=== PATIENT | female | born 1950 | race Caucasian/White ===

== ENCOUNTER 2020-05-17 00:12 | Outpatient (CLI) | payer MEDICARE, SELFPAY ==
[2020-05-17 18:54] LABS: SARS-CoV-2 RNA PCR Negative
== END 2020-05-17 00:13 | disposition home or self-care (01) ==
LOC: ANHCOVIDDT 00:12
PROVIDERS: PCP Family Medicine; Visit Provider Internal Medicine Gastroenterology
DX: Z20.828 Contact with and (suspected) exposure to other viral communicable diseases (principal)
CPT/HCPCS: 87635; C9803; U0003

== ENCOUNTER 2020-05-19 02:02 | Day surgery (SDC) | payer MEDICARE, SELFPAY ==
[2020-05-12 13:35] VITALS: BMI 32.0
[2020-05-19 06:41] VITALS: BP 156/75; PULSE 87; RESP 18; TEMP 36.1; O2SAT 97; BMI 36.9
[2020-05-19] MEDS: LACTATED RINGERS 1,000 ML 150 ML IV CONT (06:50)
--- NOTE | 2020-05-19 08:02 | WPDGICN ---
Assessment and Plan Assessment and plan (1) Family history of colon cancer in mother: Code(s): Z80.0 - Family history of malignant neoplasm of digestive organs Status: Acute Assessment and Plan: Patient's mother has a history of colon cancer. For this reason patient presents for screening colonoscopy. Patient does report having had a polyp of per own in the distant past that was resected and removed. Plan is for surveillance colonoscopy today. In would be recommended at 5 year intervals in the future. GI Consult Note Consult date/time: 05/19/20 08:02 HPI: Saniya Mancera is a 69 year old female seen in evaluation at the request of DR Ramirez. Patient presents for surveillance colonoscopy. She states that her current weight appetite bowel movements are normal. Family history is significant that her mother had colon cancer. Patient denies abdominal pain. She states her bowel habits are normal. She denies blood in her stools. Her bowel Habits are reported to be regular. Patient does have a history of colon polyps in the past. Review of Systems Review of Systems: All systems reviewed & are unremarkable except as noted in HPI and below PMFSH Past Medical History Medical History Breast cancer screening Chronic low back pain with right-sided sciatica Chronic low back pain without sciatica Chronic pain of right knee Chronic right hip pain DISH (diffuse idiopathic skeletal hyperostosis) Diverticulosis Essential (primary) hypertension Non-Hodgkin lymphoma in remission Osteopenia after menopause Polyp of colon Seizure disorder Family History Family History Father Family history of cardiovascular disease, Onset Age: 71 Mother Family history of malignant neoplasm, Onset Age: 74 Grandparent Family history of malignant neoplasm, Onset Age: 60 Social History Social History Smoking status: Never smoker Alcohol intake: never Meds Home Medications and Allergies Home Medications Medication Instructions Recorded Confirmed Type folic acid 1 mg tablet 1 mg PO DAILY 09/25/19 05/12/20 History lamotrigine 200 mg tablet 200 mg PO .COMPLEX tablet 10/07/19 05/12/20 History meloxicam 15 mg tablet 15 mg PO DAILY PRN #90 tablet 10/07/19 05/12/20 Rx phenytoin sodium extended 100 mg 100 mg PO QID cap 10/07/19 05/12/20 History capsule olmesartan 20 mg tablet 20 mg PO DAILY #30 tablet 11/24/19 05/12/20 Rx divalproex 250 mg PO 05/12/20 History Allergies Allergy/AdvReac Type Severity Reaction Status Date / Time codeine AdvReac Mild GI UPSET Verified 05/19/20 06:39 Vital Signs Vital Signs - 24 hr 05/19/20 06:41 Temperature 36.1 C L Pulse Rate 87 Respiratory Rate 18 Blood Pressure 156/75 H Pulse Oximetry 97 Exam Narrative: Exam Narrative: Physical exam repeat feels her to be alert. Vital signs stable. HEENT exam unremarkable. Lungs are clear to auscultation and percussion. Heart is without murmur or extra sounds. Abdominal exam bowel sounds are present soft nontender with no organomegaly. Digital external rectal exam normal.
--- NOTE | 2020-05-19 08:06 | WPDANESEPPF ---
Anes - Initial Pre Proc Eval Procedure: Operation Date: 05/19/20 08:00 Proposed Procedures p Screening Colonoscopy - Bayron Zuniga MD Date/Time: 05/19/20 08:06 Surgeon: Bayron Zuniga MD Pre Op Diagnosis: Family HX Of Colon CA Patient Data Age: 69 Gender: F Height: 5 ft 3 in Weight: 94.6 kg Last Vital Signs Temp 97.0 F L 05/19/20 06:41 Pulse 87 05/19/20 06:41 Resp 18 05/19/20 06:41 BP 156/75 H 05/19/20 06:41 Pulse Ox 97 05/19/20 06:41 Allergies Allergy/AdvReac Type Severity Reaction Status Date / Time codeine AdvReac Mild GI UPSET Verified 05/19/20 06:39 Home Medications Medication Instructions Recorded Confirmed Type folic acid 1 mg tablet 1 mg PO DAILY 09/25/19 05/12/20 History lamotrigine 200 mg tablet 200 mg PO .COMPLEX tablet 10/07/19 05/12/20 History meloxicam 15 mg tablet 15 mg PO DAILY PRN #90 tablet 10/07/19 05/12/20 Rx phenytoin sodium extended 100 mg 100 mg PO QID cap 10/07/19 05/12/20 History capsule olmesartan 20 mg tablet 20 mg PO DAILY #30 tablet 11/24/19 05/12/20 Rx divalproex 250 mg PO 05/12/20 History Patient hx anesthesia problems: none Family hx anesthesia problems: none PMFSH Past Medical History Medical History Breast cancer screening Chronic low back pain with right-sided sciatica Chronic low back pain without sciatica Chronic pain of right knee Chronic right hip pain DISH (diffuse idiopathic skeletal hyperostosis) Diverticulosis Essential (primary) hypertension Non-Hodgkin lymphoma in remission Osteopenia after menopause Polyp of colon Seizure disorder Family History Family History Father Family history of cardiovascular disease, Onset Age: 71 Mother Family history of malignant neoplasm, Onset Age: 74 Grandparent Family history of malignant neoplasm, Onset Age: 60 Social History Social History Smoking status: Never smoker Alcohol intake: never Anes - Eval Final PreProcedure Day of Procedure 05/19/20 08:06 Patient weight: overweight Heart: regular rate and rhythm Lungs: clear to auscultation Airway: Mallampati scale class II Neurological: alert and oriented Last oral intake: >/= 8 hours ASA classification: III Emergent: no Anesthetic plan: proceed Anesthesia type and monitoring: general GIVS and standard monitoring Informed Consent: The patient's anesthetic plan and its attendant risks and benefits were discussed with the patient/family/POA. Questions were solicited and answers provided to the satisfaction of the patient/family/POA.
[2020-05-19 08:27] VITALS: BP 130/75; PULSE 74; RESP 16; O2SAT 97
[2020-05-19 08:37] VITALS: BP 125/74; PULSE 69; RESP 16; O2SAT 98
[2020-05-19 08:47] VITALS: BP 152/81; PULSE 73; RESP 17; O2SAT 97
== END 2020-05-19 09:02 | disposition home or self-care (01) ==
PROVIDERS: PCP Family Medicine; Visit Provider Internal Medicine Gastroenterology
PROC: 0DJD8ZZ Inspection of Lower Intestinal Tract, Via Natural or Artificial Opening Endoscopic (ICD-10-PCS; CPT 45378; principal; 2020-05-19 08:00)
DX: Z12.11 Encounter for screening for malignant neoplasm of colon (principal); K64.8 Other hemorrhoids; K57.30 Diverticulosis of large intestine without perforation or abscess without bleeding; Z80.0 Family history of malignant neoplasm of digestive organs; M48.10 Ankylosing hyperostosis [Forestier], site unspecified; I10 Essential (primary) hypertension; Z85.72 Personal history of non-Hodgkin lymphomas; G40.909 Epilepsy, unspecified, not intractable, without status epilepticus
CPT/HCPCS: G0105; J2704; J7120

== ENCOUNTER 2020-06-24 15:22 | Outpatient (CLI) | payer MEDICARE, SELFPAY ==
--- NOTE | ~2020-06-24 | XR_ITS ---
XR hip RT 2V w AP pelvis DATE: 06/24/2020 15:52 INDICATION: Right hip pain. Right knee pain. TECHNIQUE: AP pelvis. AP and lateral views of right hip COMPARISON: None FINDINGS: No fracture, dislocation, avascular necrosis or bone destruction of the right hip is eviden t. Right hip joint space appears symmetric and relatively well preserved. The pubic symphysis and sacroiliac joints are intact. No pelvic fracture or bone destruction is detec bang. There is degenerative disc disease of the lower lumbar and lumbosacral area. IMPRESSION: Degenerative disc disease of the lower lumbar and lumbosacral area Reviewed, dictated and finalized at location A.
--- NOTE | ~2020-06-24 | XR_ITS ---
XR knee RT min 4V DATE: 06/24/2020 15:52 INDICATION: Right knee pain for 6 months. No known injury. TECHNIQUE: 3 views COMPARISON: None FINDINGS: There is prominent osteoarthritic change at the patellofemoral and lateral compartments. No fracture or dislocation, radiopaque intra-articular loose body or chondrocalcinosis is evident. Moderate osteopenia. IMPRESSION: Prominent osteoarthritis at the lateral and patellofemoral compartments Reviewed, dictated and finalized at location A. IMPRESSION: Prominent osteoarthritis at the lateral and patellofemoral compartm ents
== END 2020-06-24 15:23 | disposition home or self-care (01) ==
LOC: ANHIMG 15:24
PROVIDERS: PCP Family Medicine; Visit Provider Family Medicine
DX: M17.11 Unilateral primary osteoarthritis, right knee (principal); M51.36 Other intervertebral disc degeneration, lumbar region
CPT/HCPCS: 73502; 73564

== ENCOUNTER 2020-09-29 13:55 | Outpatient (CLI) | payer MEDICARE, SELFPAY ==
--- NOTE | 2020-09-29 14:11 | ECG_ITS ---
Measurements Intervals [place] Rate: 76 P: -17 MS: 160 QRS: 28 QRSD: 89 T: 45 QT: 357 QTc: 402 Interpretive Statements SINUS OR ECTOPIC ATRIAL RHYTHM BORDERLINE ECG Electronically Signed On 09-29-2020 17:13:16 BOOK COVERER by Denys Olivas D.O.
== END 2020-09-29 13:56 | disposition home or self-care (01) ==
PROVIDERS: PCP Family Medicine; Visit Provider Family Medicine
DX: I10 Essential (primary) hypertension (principal)
CPT/HCPCS: 93005

== ENCOUNTER 2022-08-16 12:32 | Outpatient (CLI) | payer MEDICARE, SELFPAY ==
--- NOTE | 2022-08-17 13:22 | WPDNEUROLOGY ---
Neurology EEG Report General Information Date of Study: 08/17/22 TEST Routine EEG DIAGNOSIS Epilepsy CONDITION OF RECORDING Awake EEG NUMBER [id number] CLINICAL HISTORY Patient with a history of epilepsy. Last seizure was 2 years ago. Last EEG done 20+ years ago. EEG DESCRIPTION During the awake state with eyes closed the background consists of 9 Hz posterior dominant rhythm which attenuates appropriately with eye opening. The recording is continuous. There is a well developed anterior-posterior gradient. No significant asymmetries of background activities are noted. Patient did not sleep during the recording. There are no epileptiform discharges or seizures during this recording. Photic stimulation and hyperventilation were done, neither of which elicited an abnormal response. IMPRESSION This is a normal routine EEG recorded in the awake state. There are no electrographic seizures identified, nor are there any epileptiform discharges. Please note that a normal EEG cannot exclude a seizure disorder. Clinical correlation is recommended.
== END 2022-08-16 12:33 | disposition home or self-care (01) ==
LOC: ANHNEURO 12:34
PROVIDERS: PCP Family Medicine; Visit Provider Psychiatry & Neurology Neurology
DX: R56.9 Unspecified convulsions (principal)
CPT/HCPCS: 95816

== ENCOUNTER → 2022-11-23 13:51 | Outpatient (CLI) | payer MEDICARE, SELFPAY ==
--- NOTE | ~2022-11-23 | MM_ITS ---
EXAMINATION: MM screening reji BI w jagdeep HISTORY: Screening mammogram TECHNIQUE: Craniocaudal and mediolateral oblique 3-D tomosynthesis images were obtained and synthetic 2-D images were generated. CAD analysis was submitted and interpreted. COMPARISON: 11/06/2019 BREAST PARENCHYMAL COMPOSITION: There are scattered areas of fibroglandular density. FINDINGS: No suspicious mass, calcification, or architectural distortion are identified in either elysia ast to suggest malignancy. There has been no suspicious interval change. IMPRESSION: 1. No mammographic evidence of malignancy. 2. Recommend routine screening mammography in one year. BI-RADS Category 1: Negative Reviewed, dictated and finalized at location A. ORATE CONTROLLER
== END ==
PROVIDERS: PCP Family Medicine; Visit Provider Family Medicine
DX: Z12.31 Encounter for screening mammogram for malignant neoplasm of breast (principal)
CPT/HCPCS: 77063; 77067

== ENCOUNTER 2024-02-05 14:12 | Outpatient (CLI) | payer MEDICARE, SELFPAY ==
[2024-02-05 14:59] LABS: Basophils Percent Auto 0.2 % (0.2-1.2); Eosinophils Absolute Auto 0.2 K/mm3 (0-0.3); Eosinophils Percent Auto 3.1 % (0-4.4); Hematocrit 37.4 % (37.0-47.0); Immature Granulocyte Absolute 0.01 K/mm3 (0.00-0.031); Immature Granulocyte Percent A 0.2 % (0-0.5); Lymphocytes Absolute Auto 1.25 K/mm3 (0.9-3.2); Lymphocytes Percent Auto 25.6 % (18.3-44.2); Mean Corpuscular HGB Conc 32.1 g/dl (32-36); Mean Corpuscular Hemoglobin 28.2 pg (26-34); Mean Platelet Volume 9.9 fl (7.4-10.4); Monocytes Absolute Auto 0.6 K/mm3 (0.1-0.6); Monocytes Percent Auto 11.3 % (2.6-8.5); Neutrophils Absolute Auto 2.9 K/mm3 (1.3-6.7); Neutrophils Percent Auto 59.6 % (45.5-73.1); Platelet Count Result 215 k/mm3 (150-375); Red Blood Count 4.25 M/mm3 (4.2-5.4); Red Cell Distribution Width 12.8 % (11.5-14.5); White Blood Count 4.9 K/mm3 (4.5-10.0)
[2024-02-05 15:35] LABS: Alanine Aminotransferase 14 U/L (6-35); Albumin Level 4.1 g/dL (3.5-5.1); Alkaline Phosphatase 90 U/L (38-126); Anion Gap 6 mmol/L (8-16); Aspartate Amino Transferase 23 U/L (14-36); Bilirubin,Total 0.3 mg/dL (0.2-1.3); Blood Urea Nitrogen 14 mg/dL (7-17); Calcium 9.4 mg/dL (8.4-10.2); Carbon Dioxide 28 mmol/L (22-30); Chloride 98 mmol/L (98-107); Estimated Glomerular Filt Rate > 60; Glucose 100 mg/dL (65-110); Potassium 4.1 mmol/L (3.4-5.0); Sodium 132 mmol/L (137-145)
[2024-02-05 15:43] LABS: Valproic Acid 34.2 ug/mL (50-120)
== END 2024-02-05 14:13 | disposition home or self-care (01) ==
LOC: ANHLAB 14:15
PROVIDERS: PCP Family Medicine; Visit Provider Student in an Organized Health Care Education/Training Program
DX: G40.909 Epilepsy, unspecified, not intractable, without status epilepticus (principal)
CPT/HCPCS: 36415; 80053; 80164; 85025

== ENCOUNTER 2024-04-10 13:41 | Emergency (ER) | payer MEDICARE, SELFPAY ==
--- NOTE | 2024-04-10 13:43 | ED.URI ---
HPI - URI/Sore Throat General Chief Complaint: Upper Respiratory Infection Stated Complaint: Cough and Shortness of Breath Time Seen by Provider: 04/10/24 13:43 Source: patient Mode of arrival: ambulatory Limitations: no limitations History of Present Illness HPI Narrative: Patient is is 73-year-old female who presents with 9 days of dry cough and congestion. Patient states her primary can never get her in. Denies any fever, chills, nausea, vomiting, diarrhea. No history of asthma, COPD or pneumonia. Patient was given Keflex for 5 days on the along with Tessalon Perles. States has some problem not helping. Has taken Robitussin with moderate relief. Related Data Home Medications Medication Instructions Recorded Confirmed cyanocobalamin (vitamin B-12) 1,000 mcg PO DAILY 09/03/23 04/10/24 1,000 mcg tablet Allergies Allergy/AdvReac Type Severity Reaction Status Date / Time codeine AdvReac Mild GI UPSET Verified 01/11/24 15:42 nitrofurantoin AdvReac Intermediate Nausea Uncoded 04/07/24 13:21 Review of Systems Review of Systems: All systems reviewed & are unremarkable except as noted in HPI and below Constitutional: Constitutional: Denies body ache(s), Denies chills, Denies fatigue, Denies fever(s), Denies headache(s), Denies malaise and Denies weakness Eyes: Eyes: Denies blurry vision, Denies itchy eyes and Denies loss of vision ENT: Denies otalgia, Denies headache(s), Reports nasal congestion, Denies sinus pain and Denies sore throat Cardiovascular: Cardiovascular: Denies chest pain, Denies irregular heart rhythm and Denies dyspnea Respiratory: Respiratory: Reports cough and Denies dyspnea Gastrointestinal: Gastrointestinal: Denies abdominal pain, Denies diarrhea, Denies nausea and Denies vomiting Musculoskeletal: Musculoskeletal: Denies back pain, Denies myalgias and Denies arthralgias Integumentary/Breasts: Skin/Breast: Denies pruritus and Denies rash Neurologic: Denies headache(s), Denies loss of vision and Denies weakness Psychiatric: Psychiatric: Reports no additional psychiatric complaints Endocrine: Endocrine: Denies fatigue Allergic/Immunologic: Allergic/Immunologic: Denies itchy eyes PMFSH Past Medical History Medical History Anemia Hemoglobin 11.6, iron 115 with 54% saturation and ferritin 102 with vitamin B12 370 and folic acid 24 on 08/31/2023. At low risk for fall Basal cell carcinoma with sebaceous differentiation pathology done on biopsy 02/21/2023. Bilateral chronic knee pain BMI 34.0-34.9,adult BMI 35.0-35.9,adult BMI 36.0-36.9,adult BMI 37.0-37.9, adult Breast cancer screening Normal mammogram 11/23/2022. Chronic low back pain with left-sided sciatica Chronic low back pain with right-sided sciatica Chronic low back pain without sciatica Chronic pain of left knee Chronic pain of right knee total knee replacement Chronic right hip pain Cough DISH (diffuse idiopathic skeletal hyperostosis) Diverticulosis Encounter for hepatitis C screening test for low risk patient (08/31/23) Hepatitis-C screening was negative on 08/31/2023. Essential (primary) hypertension Fever blister Folic acid deficiency level normal at 24 with hemoglobin 11.6 on 08/31/2023. Furuncle of axilla Neoplasm of nose (~2021) erythematous papule right nostril 0.2 cm shave 02/21/2023 Neoplasm of skin (~2020) nonhealing crusted lesion left forehead for 1 year Non-Hodgkin lymphoma in remission treated 2006 at [facility], remission. Obesity (BMI 30-39.9) Osteopenia after menopause Polyp of colon history of colon polyp with last exam normal on 05/19/2020 with recheck in 5 years. Preoperative clearance Seizure disorder EEG on 08/17/2022 was normal. UTI (urinary tract infection) Vitamin B12 deficiency (08/31/23) level low at 370 with goal greater than 400 with hemoglobin 11.6 and folic acid 24 on 08/31/2023. Family History Family History (
[2024-04-10 13:50] VITALS: BP 149/71; PULSE 83; RESP 18; TEMP 36.3; O2SAT 99
== END 2024-04-10 14:08 | disposition home or self-care (01) ==
PROVIDERS: Emergency Provider Nurse Practitioner Family; PCP Family Medicine
DX: J20.9 Acute bronchitis, unspecified (principal); D64.9 Anemia, unspecified; I10 Essential (primary) hypertension; Z96.651 Presence of right artificial knee joint; E66.9 Obesity, unspecified; Z68.30 Body mass index [BMI] 30.0-30.9, adult; M85.80 Other specified disorders of bone density and structure, unspecified site; E53.8 Deficiency of other specified B group vitamins; Z85.828 Personal history of other malignant neoplasm of skin; Z85.72 Personal history of non-Hodgkin lymphomas
CPT/HCPCS: 99213; G0463

== ENCOUNTER → 2024-04-17 12:20 | Outpatient (CLI) | payer MEDICARE, SELFPAY ==
--- NOTE | ~2024-04-17 | XR_ITS ---
EXAMINATION: XR chest 2V DATE: 04/17/2024 12:28 INDICATION: Acute bronchitis, unspecified. TECHNIQUE: Frontal and lateral views of the chest were obtained. COMPARISON: Chest 2 views 02/09/2018 FINDINGS: There is no pneumonia, pleural effusion, or pneumothorax. Cardiomegaly is noted. IMPRESSION: 1. Cardiomegaly. Reviewed, dictated and finalized at location A. IMPRESSION: 1. Cardiomegaly.
== END ==
LOC: EXPTROY 12:21
PROVIDERS: PCP Family Medicine; Visit Provider Family Medicine
DX: J20.9 Acute bronchitis, unspecified (principal); I51.7 Cardiomegaly
CPT/HCPCS: 71046

== ENCOUNTER 2024-05-19 09:52 | Outpatient (CLI) | payer MEDICARE, SELFPAY ==
--- NOTE | 2024-05-19 10:42 | ECG_ITS ---
Test Date: 2024-05-19 11:06:01 Measurements Intervals [place] Rate: 76 P: 41 NH: 180 QRS: 12 QRSD: 83 T: 43 QT: 347 QTc: 391 Interpretive Statements SINUS RHYTHM VOLTAGE CRITERIA FOR LVH BORDERLINE R WAVE PROGRESSION, ANTERIOR LEADS CONSIDER INFERIOR INFARCT, AGE INDETERMINATE ABNORMAL ECG No previous ECG available for comparison Electronically Signed On 05-19-2024 11:37:18 CDT by Denys Olivas D.O.
[2024-05-19 11:18] LABS: Basophils Percent Auto 0.2 % (0.2-1.2); Eosinophils Absolute Auto 0.1 K/mm3 (0-0.3); Eosinophils Percent Auto 2.2 % (0-4.4); Hematocrit 30.8 % (37.0-47.0); Hemoglobin 9.9 g/dL (12.0-15.0); Immature Granulocyte Absolute 0.08 K/mm3 (0.00-0.031); Immature Granulocyte Percent A 1.4 % (0-0.5); Lymphocytes Absolute Auto 1.24 K/mm3 (0.9-3.2); Lymphocytes Percent Auto 21.1 % (18.3-44.2); Mean Corpuscular HGB Conc 32.1 g/dl (32-36); Mean Corpuscular Hemoglobin 28.4 pg (26-34); Mean Corpuscular Volume 88.3 fl (80-100); Mean Platelet Volume 9.4 fl (7.4-10.4); Monocytes Percent Auto 16.1 % (2.6-8.5); Neutrophils Absolute Auto 3.5 K/mm3 (1.3-6.7); Platelet Count Result 264 k/mm3 (150-375); Red Blood Count 3.49 M/mm3 (4.2-5.4); Red Cell Distribution Width 13.6 % (11.5-14.5); White Blood Count 5.9 K/mm3 (4.5-10.0)
[2024-05-19 11:30] LABS: Albumin Level 3.8 g/dL (3.5-5.1); Anion Gap 8 mmol/L (4-12); Blood Urea Nitrogen 8 mg/dL (7-17); Calcium 9.1 mg/dL (8.4-10.2); Carbon Dioxide 29 mmol/L (22-30); Chloride 96 mmol/L (98-107); Estimated Glomerular Filt Rate > 60; Glucose 107 mg/dL (65-110); Potassium 3.8 mmol/L (3.4-5.0); Sodium 133 mmol/L (137-145)
[2024-05-19 11:33] LABS: Phenytoin Dilantin 5 ug/mL (10-20)
[2024-05-19 11:49] LABS: Urine Cotinine NEGATIVE
[2024-05-19 11:51] LABS: Valproic Acid 30.7 ug/mL (50-120)
[2024-05-19 12:02] LABS: Hemoglobin A1C 5.2 % (<5.7)
== END 2024-05-19 09:53 | disposition home or self-care (01) ==
LOC: ANHSURGERY 09:54
PROVIDERS: Anesthesiology; PCP Family Medicine; Visit Provider Orthopaedic Surgery
DX: Z01.818 Encounter for other preprocedural examination (principal); M17.12 Unilateral primary osteoarthritis, left knee; G40.909 Epilepsy, unspecified, not intractable, without status epilepticus; R94.31 Abnormal electrocardiogram [ECG] [EKG]
CPT/HCPCS: 36415; 80048; 80164; 80185; 80307; 82040; 83036; 85025; 87081; 93005

== ENCOUNTER 2024-05-26 10:25 | Outpatient (CLI) | payer MEDICARE, SELFPAY ==
[2024-05-26 10:47] LABS: Basophils Percent Auto 0.5 % (0.2-1.2); Eosinophils Absolute Auto 0.1 K/mm3 (0-0.3); Eosinophils Percent Auto 3.2 % (0-4.4); Hematocrit 33.5 % (37.0-47.0); Hemoglobin 10.8 g/dL (12.0-15.0); Immature Granulocyte Absolute 0.04 K/mm3 (0.00-0.031); Immature Granulocyte Percent A 0.9 % (0-0.5); Lymphocytes Absolute Auto 1.78 K/mm3 (0.9-3.2); Mean Corpuscular HGB Conc 32.2 g/dl (32-36); Mean Corpuscular Hemoglobin 28.6 pg (26-34); Mean Corpuscular Volume 88.6 fl (80-100); Mean Platelet Volume 8.7 fl (7.4-10.4); Monocytes Absolute Auto 0.5 K/mm3 (0.1-0.6); Monocytes Percent Auto 11.8 % (2.6-8.5); Neutrophils Absolute Auto 1.9 K/mm3 (1.3-6.7); Neutrophils Percent Auto 42.6 % (45.5-73.1); Platelet Count Result 300 k/mm3 (150-375); Red Blood Count 3.78 M/mm3 (4.2-5.4); Red Cell Distribution Width 13.7 % (11.5-14.5); White Blood Count 4.3 K/mm3 (4.5-10.0)
== END 2024-05-26 10:26 | disposition home or self-care (01) ==
PROVIDERS: PCP Family Medicine; Visit Provider Orthopaedic Surgery
DX: D64.9 Anemia, unspecified (principal)
CPT/HCPCS: 36415; 85025

== ENCOUNTER 2024-06-05 01:24 | Day surgery (SDC) | payer MEDICARE, SELFPAY ==
[2024-05-19 09:59] VITALS: BMI 34.9
--- NOTE | 2024-05-19 10:22 | PC.NURSE ---
Report to the Outpatient Waiting Room, entrance under the green pavilion located off [facility], at time __6:00 AM on date __06/05/24 . Planned Procedure Time: _7:30 AM . Time changes happen often and if your time is changed the preop area will call you the afternoon before. - You and your visitor will be asked to self-screen and do not enter if you have any COVID symptoms. - A mask is optional within the hospital at this time. Patients may have clear liquids (water, carbonated beverages, clear teas, apple juice) until 3 hours prior to surgery( 4:30 AM) with a maximum of 20 ounces. - No food from midnight until time of surgery - Infants may have breast milk until 4 hours before surgery, infant formula 6 hours prior to surgery. - Children will be allowed to drink immediately following surgery. If applicable, please bring a bottle or sippy cup to assist with drinking. Juice, water, soda, and popsicles are readily available. For infants on formula, please bring formula the day of surgery. Pacifiers are allowed. Take the following medications with a SIP of water the morning of surgery: ___DIVALPROEX,LAMOTRIGINE,PHENYTOIN DO NOT STOP ANY OF YOUR OTHER PRESCRIPTION MEDICATIONS PRIOR TO SURGERY ?EXCEPT THE FOLLOWING Medications to discontinue per physician __HOLD MELOXICAM 7 DAYS PRE OP PER DR PAIZ.LAST DOSE05/28/24.MAY TAKE TYLENOL IF NEEDED FOR PAIN.HOLD ALL VITAMINS AND SUPPLEMENTS 3 DAYS PRE OP.LAST DOSE 06/01/24 TOTAL JOINT CLASS 05/21/24 AT 10 AM Please no make-up, nail croatian, hairspray, perfume, deodorant, or body powder the day of surgery. No jewelry (including any body piercings) or valuables the day of surgery, leave them at home. Please take a shower or bath the night before, or the morning of, surgery with an antibacterial soap. Wear comfortable, loose fitting clothing. Children are encouraged to wear pajamas. - Jewelry must be removed prior to entering the operating room. Rings and piercings that are not removed may be cut off. - The hospital will not accept responsibility for valuables. - Please leave all valuables, including medications, at home the day of surgery. If you are going home after surgery, a licensed intermodal owner operator truck driver must drive you home. - NO public transportation without another adult if you receive anesthesia. - We recommend that an adult stay with you for 24 hours following discharge. - We also recommend that you do not drive, make important decision, drink alcoholic beverages, or take any drugs that were not prescribed by your health care provider for at least 24 hours after your discharge sherry Follow any additional instructions given to you from your surgeon. If you or anyone in your household have experienced Covid symptoms in the past week, please notify your surgeon or the nurse liaison at the phone number below for possible testing. VERBAL AND WRITTEN instructions given to _PATIENT AND SPOUSE AARON and asked if any additional questions and then verbalized understanding. Patient advised to call surgeon office or pre surgery nurse liaison [phone] if any additional questions.
[2024-05-19 10:48] VITALS: BP 165/76; PULSE 85; RESP 18; TEMP 36.9; O2SAT 97
--- NOTE | 2024-06-02 09:17 | PM.IMHP ---
H&P: HPI History of Present Illness Date/Time: 06/02/24 09:17 Chief Complaint: Left knee DJD Narrative: 73-year-old female who presents today for a left total knee arthroplasty. She has been having pain in her knee for several years. She has been treated this nonsurgically with anti-inflammatories as well as cortisone injections. Last injection was in 2021. Offered her minimal amount of improvement so she stopped getting these. She has been taking meloxicam 15 mg daily. Patient has severe lateral compartment osteoarthritis in at this point she feels she is ready proceed with total knee arthroplasty. She had her right knee replaced in 2020 is happy with the results. She had uneventful recovery. She is a patient of Dr. Ramirez Review of Systems Review of Systems: All systems reviewed & are unremarkable except as noted in HPI and below PMFSH Past Medical History Medical History (Updated 05/21/24 @ 10:37 by Michel Ramirez MD) Acute bronchitis Chest x-ray revealed no active lung disease. Cardiomegaly noted 04/17/2024. Acute non-recurrent maxillary sinusitis Anemia Hemoglobin 11.6, iron 115 with 54% saturation and ferritin 102 with vitamin B12 370 and folic acid 24 on 08/31/2023. Hemoglobin 9.9 on 05/19/2024. At low risk for fall Basal cell carcinoma with sebaceous differentiation pathology done on biopsy 02/21/2023. Bilateral chronic knee pain BMI 33.0-33.9,adult BMI 34.0-34.9,adult BMI 35.0-35.9,adult BMI 36.0-36.9,adult BMI 37.0-37.9, adult Breast cancer screening Normal mammogram 11/23/2022. Chronic low back pain with left-sided sciatica Chronic low back pain with right-sided sciatica Chronic low back pain without sciatica Chronic pain of left knee Chronic pain of right knee total knee replacement Chronic right hip pain Cough DISH (diffuse idiopathic skeletal hyperostosis) Diverticulosis Encounter for hepatitis C screening test for low risk patient (08/31/23) Hepatitis-C screening was negative on 08/31/2023. Essential (primary) hypertension Fever blister Folic acid deficiency level normal at 24 with hemoglobin 11.6 on 08/31/2023. Furuncle of axilla Gastritis Neoplasm of nose (~2021) erythematous papule right nostril 0.2 cm shave 02/21/2023 Neoplasm of skin (~2020) nonhealing crusted lesion left forehead for 1 year Non-Hodgkin lymphoma in remission treated 2006 at [facility], remission. Obesity (BMI 30-39.9) Osteopenia after menopause Polyp of colon history of colon polyp with last exam normal on 05/19/2020 with recheck in 5 years. Preoperative clearance Seizure disorder EEG on 08/17/2022 was normal. UTI (urinary tract infection) Vitamin B12 deficiency (08/31/23) level low at 370 with goal greater than 400 with hemoglobin 11.6 and folic acid 24 on 08/31/2023. Surgical History Surgical History (Updated 05/14/24 @ 14:38 by Marta Faustin [facility]) History of hand surgery History of hysterectomy History of right knee joint replacement Family History Family History Father Family history of cardiovascular disease, Onset Age: 71 Mother Family history of malignant neoplasm, Onset Age: 74 Grandparent Family history of malignant neoplasm, Onset Age: 60 Social History Social History Smoking status: Never smoker Additional smoking assessment comments: DENIES ANY FORM OF TOBACCO USE Alcohol intake: never Substance use: never Substance use type: does not use Do You Feel Safe in your Home?: Yes Lack of Transportation: No Lack of Food: Never True Current Housing: I Have Housing Concerned About Future Housing: No Difficulty Paying Gas/Electric Bills: No Difficulty Paying for Meds: No Currently Unemployed: No Education: High School Diploma/GED Difficulty w/ Childcare or Family Care: No Living arrangements: jillian
[2024-06-05] VITALS (14 sets, daily range): BP systolic 81–163; BP diastolic 40–79; PULSE 86–104; RESP 12–20; TEMP 36.2–36.5; O2SAT 94–99
--- NOTE | ~2024-06-05 | XR_ITS ---
EXAMINATION: [id number] DATE: 06/05/2024 11:27 INDICATION: Postoperative evaluation following left total knee arthroplasty. TECHNIQUE: Anteroposterior and lateral views of the left knee were obtained. COMPARISON: None. FINDINGS: Left total knee arthroplasty without patellar resurfacing appears well seated and in near anatomic al ignment. No fractures identified. Expected postoperative subcutaneous and intra-articular gas. IMPRESSION: 1. Left total knee arthroplasty, negative for postoperative purposes. Reviewed, dictated and finalized at location A.
[2024-06-05] MEDS: TRANEXAMIC ACID 1,000MG/ISO100 1,000 MG/100 ML BAG 200 MG IVPB (06:45)
[2024-06-05] MEDS: VANCOMYCIN 1,250 MG/NS 250 ML BAG 166.67 MG IVPB (06:45)
[2024-06-05] MEDS: LACTATED RINGERS 1,000 ML 30 ML IV CONT ×3 (06:45→11:40)
[2024-06-05] MEDS: ACETAMINOPHEN 500 MG TABLET 1000 MG PO (06:45)
[2024-06-05 07:16] LABS: Hematocrit 36.3 % (37.0-47.0); Hemoglobin 11.6 g/dL (12.0-15.0)
--- NOTE | 2024-06-05 07:21 | WPDANESEPPF ---
Anes - Initial Pre Proc Eval Procedure: Operation Date: 06/05/24 07:30 Proposed Procedures p Left Total Knee Arthroplasty - Guille Ricks MD Date/Time: 06/05/24 07:21 Surgeon: Guille Ricks MD Pre Op Diagnosis: oa left knee Patient Data Age: 73 Gender: F Height: 1.57 m Weight: 84.1 kg Last Vital Signs Temp 97.1 F L 06/05/24 06:45 Pulse 96 06/05/24 06:45 Resp 14 06/05/24 06:45 BP 126/57 L 06/05/24 06:45 Pulse Ox 98 06/05/24 06:45 O2 Del Method Room Air 06/05/24 06:45 Allergies Allergy/AdvReac Type Severity Reaction Status Date / Time No Known Allergies Allergy Verified 06/05/24 07:17 Home Medications Medication Instructions Recorded Confirmed Type folic acid 1 mg tablet 1 mg PO DAILY #90 tabs 01/11/24 06/04/24 Rx olmesartan 40 mg tablet 40 mg PO DAILY #30 tabs 01/28/24 06/04/24 Rx divalproex 250 mg tablet,delayed 250 mg PO BID #180 tabs 01/31/24 06/04/24 Rx release phenytoin sodium extended 100 mg 200 mg PO BID #360 caps 01/31/24 06/04/24 Rx capsule calcium polycarbophil 625 mg 1,250 mg PO DAILY 05/19/24 06/04/24 History tablet (FiberCon) vit C 250 mg-vit E 200 unit-zinc 2 cap PO HS 05/19/24 06/04/24 History ox 12.5 bw-hqxiap-krtdfo-zeax capsule (ICaps AREDS2) rabeprazole 20 mg tablet,delayed 20 mg PO DAILY #30 tabs 05/21/24 06/04/24 Rx release (AcipHex) lamotrigine 200 mg tablet 400 mg PO BID 06/04/24 06/05/24 History Laboratory Tests 06/05/24 06:39 Hgb 11.6 L g/dL (12.0-15.0) Hct 36.3 L % (37.0-47.0) Blood Type Pending Antibody Screen Pending Patient hx anesthesia problems: none Family hx anesthesia problems: none Results Review: All pre-operative results and documents have been reviewed as part of the pre-operative evaluation. COUNT INCLUDES THE [facility] Past Medical History Medical History (Updated 06/04/24 @ 12:00 by Michel Ramirez MD) Acute bronchitis Chest x-ray revealed no active lung disease. Cardiomegaly noted 04/17/2024. Acute non-recurrent maxillary sinusitis Anemia Hemoglobin 11.6, iron 115 with 54% saturation and ferritin 102 with vitamin B12 370 and folic acid 24 on 08/31/2023. Hemoglobin 9.9 on 05/19/2024. At low risk for fall Basal cell carcinoma with sebaceous differentiation pathology done on biopsy 02/21/2023. Bilateral chronic knee pain BMI 31.0-31.9,adult BMI 33.0-33.9,adult BMI 34.0-34.9,adult BMI 35.0-35.9,adult BMI 36.0-36.9,adult BMI 37.0-37.9, adult Breast cancer screening Normal mammogram 11/23/2022. Chronic low back pain with left-sided sciatica Chronic low back pain with right-sided sciatica Chronic low back pain without sciatica Chronic pain of left knee Chronic pain of right knee total knee replacement Chronic right hip pain Cough DISH (diffuse idiopathic skeletal hyperostosis) Diverticulosis Encounter for hepatitis C screening test for low risk patient (08/31/23) Hepatitis-C screening was negative on 08/31/2023. Essential (primary) hypertension Fever blister Folic acid deficiency level normal at 24 with hemoglobin 11.6 on 08/31/2023. Furuncle of axilla Gastritis Neoplasm of nose (~2021) erythematous papule right nostril 0.2 cm shave 02/21/2023 Neoplasm of skin (~2020) nonhealing crusted lesion left forehead for 1 year Non-Hodgkin lymphoma in remission treated 2006 at [facility], [facility]. Obesity (BMI 30-39.9) Osteopenia after menopause Polyp of colon history of colon polyp with last exam normal on 05/19/2020 with recheck in 5 years. Preoperative clearance Seizure disorder EEG on 08/17/2022 was normal. UTI (urinary tract infection) Vitamin B12 deficiency (08/31/23) level low at 370 with goal greater than 400 with hemoglobin 11.6 and folic acid 24 on 08/31/2023. Surgical History Surgical History (Updated 05/14/24 @ 14:38 by Marta Faustin, [facility]) History of hand surgery History of hysterectomy History of right knee joint replacement Family
--- NOTE | 2024-06-05 07:23 | WPDHPUPDATE1 ---
History and Physical Update Update Date/Time: 06/05/24 07:23 History and Physical has been reviewed, including an updated exam of the patient. There are NO changes in the patient's condition. Risks, benefits, and alternatives have been discussed and questions answered. Patient agrees to proceed with procedure.
[2024-06-05] MEDS: ceFAZolin 2 GM/D5W 50 ML 2 GM/50 ML BAG IVPB ×4 (07:30→22:43)
[2024-06-05] MEDS: SODIUM CHLORIDE 0.9% IV 37.7 ML, MORPHINE SULFATE INJ (*CRX) 2 MG, ROPivacaine HCL 1% 2... INFILTRATE (08:05)
[2024-06-05] MEDS: ceFAZolin SODIUM 1 GM VIAL 3 GM (08:06)
[2024-06-05] MEDS: KETOROLAC 15 MG/ML VIAL (*BKC) IV PUSH ×3 (10:21→22:43)
[2024-06-05] MEDS: TRANEXAMIC ACID 1,000 MG/10 ML AMPUL 1000 MG IV PUSH (10:21)
--- NOTE | 2024-06-05 11:31 | W.PM.PROC2 ---
Procedure Note - Detailed Date of Procedure 06/05/24 Pre-op Diagnosis oa left knee Post-op Diagnosis Same Procedure Performed Left total knee arthroplasty Surgeon Guille Ricks MD [employer] [facility] Anesthesia General Description of Procedure Patient was brought to the operating room and general anesthesia was administered and the left leg prepped draped usual fashion. Under anesthesia the knee appeared to come out straight. The valgus deformity did partially correct with varus stress also. The left knee was prepped draped usual fashion. Limb was exsanguinated tourniquet elevated to 300 mmHg. He she received 2 g Ancef weight based vancomycin 1 g of TXA preoperatively. A 7 in longitudinal midline incision was used and a standard parapatellar arthrotomy utilized. Infrapatellar fat pad partially excised the quadriceps synovectomy carried out. The patella had some peripheral osteophytes but the cartilage was normal. Osteophytes were trimmed. A minimal lateral facetectomy was performed I felt the patella was suitable for non resurfacing. There is no deformity. Next a guide gena was inserted on femoral canal after aspiration of canal contents using the 5 degree valgus cutting bushing 10 mm of bone removed the distal femur referenced off the medial side in this removed about 4 mm off the lateral side which was eburnated. Next the tibial plateau was cut. A conservative cut was made that did cut through the lowestwear point of the lateral tibial plateau that this did not get through the articular cartilage posterior aspect of the medial tibial plateau. Therefore an additional 2 mm of bone was removed which just skimmed off the subchondral bone of the posterior aspect of the medial tibial plateau. Cut was made perpendicular to the axis of the tibia. Meniscus remnants were excised the PCL recessed. Flexion gap measured 8 mm medially and 14 mm laterally. The femoral sizing guide was applied the femur set at 7? of external rotation which matched Whitesides line exactly. Posterior referencing pinholes were placed and the size 65 cutting block applied AP and chamfer cuts were made in this gave a line to line cut medial to lateral and rested on the anterior cortex. The knee did not come out to full extension. At 90? of flexion with a 10 CR trial there was about 2 mm of opening with a Lam elevator both medially laterally. The tibia was sized to a 71 which fit line to line all the way around at the proper rotation. This was punched. Trialing with the 10 insert at this time we had appropriate stability to anterior posterior drawer at 90? with 1 mm of medial lateral opening with valgus and varus stress at 90?. However the knee did not come to full extension. Additional 2 mm of bone removed the distal femur at this time. Chamfer cuts revisited. Residual posterior femoral bone proximal to posterior condylar portion of the trial was removed and a conservative central posterior capsular release performed. On trialing at this time the knee had 2 mm of medial opening but no lateral opening. Is still lacked about 10? of extension. The iliotibial band was released about 1/2 cm proximal to the joint line and the posterolateral capsule released closer to the joint line taking care to protect the underlying lateral collateral ligament and this was released up to the popliteal tendon. With this done we read trialed and we had play medially and laterally still lacked few degrees of extension. The posterior capsular release was revisited and completed from the medial head of the gastrocnemius to the lateral head of the gastrocnemius with this done we just had a barely positive bounce with about 1 mm each of medial and lateral opening. Therefore an additional 1 mm bone was removed from the distal femur chamfer cuts revisited and on read trialing the knee came out to full extension with negative bounce 1-2 mm of medial opening extension 1 mm of lateral opening in extension. Th
--- NOTE | 2024-06-05 11:32 | PM.OP ---
Procedure Note - Brief Procedure Note - Brief Date of procedure: 06/05/24 oa left knee Procedure performed: Left total knee arthroplasty Surgeon: ANIA Frazier Findings: 73-year-old female who underwent left total knee arthroplasty on 06/05. I was involved in the procedure including positioning the patient on the OR table in 1st assisting to the time surgery as well as wound closure. Total time spent was 31/2 hours
--- NOTE | 2024-06-05 11:36 | SUR.PHASEI ---
BP on arrival to PACU 81/40. Treated by AIRCREWMAN. BP carmen to 102/60.
[2024-06-05] MEDS: fentaNYL CITRATE INJ (*CRX) 100 MCG/2 ML VIAL 25 MCG IV PUSH ×4 (11:42→11:56)
--- NOTE | 2024-06-05 13:06 | SUR.PHASEI ---
This RN tried to call report to floor RN and she is busy and will call back.
--- NOTE | 2024-06-05 15:32 | ADMGEN ---
This patient, Saniya Mancera, was admitted to [facility] Surg Room 323-01. Patient/family oriented to hospital policies and general routines including ID bracelet, bed and alarms, visiting hours, pain management, procedures, bathroom and other care routines, personal items, smoking policy, room service/diet, and visiting hours. Information on how to activate the Rapid Response Team has been discussed. Patient/Family are encouraged to report perceived risks to care and to ask questions if they do not understand what they are told or what they should do.
[2024-06-05] MEDS: SODIUM CHLORIDE 0.9% IV 1,000 ML 125 ML IV CONT (15:47)
[2024-06-05] MEDS: ACETAMINOPHEN 325 MG TABLET 650 MG PO ×2 (15:48→22:42)
[2024-06-05] MEDS: SENNA/DOCUSATE SODIUM TABLET 2 TAB PO (15:50)
[2024-06-05] MEDS: DIVALPROEX SODIUM DR 250 MG TABEC PO (15:50)
[2024-06-05] MEDS: VANCOMYCIN 1,000 MG/NS 250 ML 1,000 MG/250 ML BAG 250 MG IVPB (17:19)
--- NOTE | 2024-06-05 19:42 | PM.IMCN ---
Assessment and Plan Assessment and plan (1) Osteoarthritis of left knee: Qualifiers: Osteoarthritis type: primary Qualified Code(s): M17.12 - Unilateral primary osteoarthritis, left knee Code(s): M17.12 - Unilateral primary osteoarthritis, left knee Status: Acute Assessment and Plan: Underwent a total left knee arthroplasty on 06/04. - ambulate with assistance and up to chair - apply gel pads - use IS - neurovasc checks - see order for intervals - SCDs and start Eliquis tomorrow on 06/06 - resume diet - pain management and antiemetics p.r.n. - monitor labs in AM - CBC and BMP - bowel regimen: docusate/senna, polyethylene glycol - maintenance fluids: NS 125 mL/hr x8 hours - prophylactic abx - Ancef - PT/OT (2) Anemia: Qualifiers: Anemia type: unspecified type Qualified Code(s): D64.9 - Anemia, unspecified Code(s): D64.9 - Anemia, unspecified Status: Acute Assessment and Plan: - Hgb 10.8 (05/26) -> 11.6 (06/05) - monitor (3) Essential (primary) hypertension: Code(s): I10 - Essential (primary) hypertension Status: Acute Assessment and Plan: - chronic, currently 133/69 - continue home medications: olmesartan 40 mg daily - monitor (4) Seizure disorder: Code(s): G40.909 - Epilepsy, unspecified, not intractable, without status epilepticus Status: Acute Assessment and Plan: - absent type - last seizure 5 years ago when medication was down titrated to see if she could come off - continue divalproex, Lamictal, and phenytoin Plan Patient underwent a left total knee arthroplasty on 06/05. No issues postoperatively. Pain well managed. Anticipate discharge tomorrow on 06/06. Diet: regular GI Prophylaxis: not currently indicated DVT Prophylaxis: SCDs, starting Eliquis tomorrow on 06/06 Lines: peripheral Code Status: full code HPI Date of Consult Consult date: 06/05/24 Requesting Physician: Guille Ricks MD Primary Care Provider: Michel Ramirez MD Consult Narrative Reason for consult: Medical Managment Narrative: Saniya Mancera is a 73 year old female DJD of the left knee with PMH of anemia, basal cell carcinoma, chronic pain, diverticulosis, HTN, folic acid deficiency, gastritis, non-Hodgkin's lymphoma in remission, seizure disorder, and B12 deficiency. The patient presents here for surgical management of her left knee DJD. She reports ongoing pain for the past 10 years. Has failed outpatient conservative measures: oral anti-inflammatories, meloxicam, and cortisone injections. Last cortisone injection was in 2021 and offered full relief for 1 month. Per review of orthopedic note, patient has severe lateral compartment osteoarthritis of the left knee. Has previously underwent a right knee arthroplasty in 2020 and was pleased with the results with an uneventful recovery. Elected to move forward with surgical management and underwent a total left knee arthroplasty on today, 06/05. Postoperatively endorsing no complaints. Denying excessive pain/swelling, nausea or vomiting. Denies any recent changes to her medications. No other complaints. Has hx of absent seizures, last one was 4-5 years ago when they tried to titrate her off her meds due to being seizure free for 10 years. Preop workup: WBC 4.3, hemoglobin 10.8 (today 11.6), sodium 133, creatinine 0.5 and GFR >60, A1C 5.2. Preop VS: 98.5? F, HR 85, RR 18, 165/76, and 97% on RA. Review of Systems Review of Systems: All systems reviewed & are unremarkable except as noted in HPI and below PMFSH Past Medical History Medical History (Updated 06/05/24 @ 20:59 by Tashia Dueñas, [employer]) Acute bronchitis Chest x-ray revealed no active lung disease. Cardiomegaly noted 04/17/2024. Acute non-recurrent maxillary sinusitis Anemia Hemoglobin 11.6, iron 115 with 54% saturation and ferritin 102 with vitamin B12 370 and folic acid 24 on 10
[2024-06-05] MEDS: FAMOTIDINE 20 MG TABLET PO (20:33)
[2024-06-05] MEDS: lamoTRIgine 100 MG TABLET 400 MG PO (20:33)
[2024-06-05] MEDS: PHENYTOIN SODIUM 100 MG EXTENDED RELEASE CAP 200 MG PO (20:34)
[2024-06-06] MEDS: ACETAMINOPHEN 325 MG TABLET 650 MG PO ×3 (00:48→11:15)
[2024-06-06 04:30] VITALS: BP 142/71; PULSE 102; RESP 20; TEMP 37; O2SAT 94
[2024-06-06] MEDS: VANCOMYCIN 1,000 MG/NS 250 ML 1,000 MG/250 ML BAG 250 MG IVPB (05:21)
[2024-06-06 06:26] LABS: Basophils Percent Auto 0.3 % (0.2-1.2); Eosinophils Percent Auto 0.5 % (0-4.4); Hematocrit 26.8 % (37.0-47.0); Hemoglobin 8.5 g/dL (12.0-15.0); Immature Granulocyte Absolute 0.01 K/mm3 (0.00-0.031); Immature Granulocyte Percent A 0.3 % (0-0.5); Lymphocytes Absolute Auto 0.33 K/mm3 (0.9-3.2); Lymphocytes Percent Auto 8.5 % (18.3-44.2); Mean Corpuscular HGB Conc 31.7 g/dl (32-36); Mean Corpuscular Hemoglobin 28.8 pg (26-34); Mean Corpuscular Volume 90.8 fl (80-100); Mean Platelet Volume 10.4 fl (7.4-10.4); Monocytes Absolute Auto 0.3 K/mm3 (0.1-0.6); Monocytes Percent Auto 7.8 % (2.6-8.5); Neutrophils Absolute Auto 3.2 K/mm3 (1.3-6.7); Neutrophils Percent Auto 82.6 % (45.5-73.1); Platelet Count Result 144 k/mm3 (150-375); Red Blood Count 2.95 M/mm3 (4.2-5.4); Red Cell Distribution Width 14.1 % (11.5-14.5); White Blood Count 3.9 K/mm3 (4.5-10.0)
[2024-06-06 06:49] LABS: Anion Gap 8 mmol/L (4-12); Blood Urea Nitrogen 10 mg/dL (7-17); Calcium 8.4 mg/dL (8.4-10.2); Carbon Dioxide 26 mmol/L (22-30); Chloride 99 mmol/L (98-107); Estimated CRCL calculation 70 ml/min; Estimated Glomerular Filt Rate > 60; Glucose 137 mg/dL (65-110); Potassium 3.8 mmol/L (3.4-5.0); Sodium 133 mmol/L (137-145)
[2024-06-06 07:08] VITALS: BP 141/84; PULSE 99; RESP 18; TEMP 36.8; O2SAT 97
--- NOTE | 2024-06-06 07:41 | PM.PNORT ---
Subjective Subjective Date/Time Seen: 06/06/24 07:41 Interval history: Postop day 1 patient is alert. She is having a little bit more pain this morning than she was yesterday. Most of her pain is in the posterior aspect of the knee. I am going to increase her oxycodone 5 mg. She is tolerating the to 2.5 without problems. She will get started on Celebrex this morning which will also help with her symptoms. Morning labs are noted. Hemoglobin was 8.5. Her vital signs are very stable blood pressure is very normal. Patient is having no symptoms from the lower hemoglobin. Dressing is intact. She has very mild swelling in the knee. Neurovascularly she is intact. She was up walking yesterday with physical therapy and patient is anxious to go home. I will have her work with therapy this morning and then she will be discharged home later this morning. Objective Data Vital Signs Vital Signs: Vital Signs - 24 hr 06/05/24 11:22 06/05/24 11:35 06/05/24 11:50 Temperature 97.5 F L Pulse Rate 102 H 100 104 H Respiratory Rate 18 15 14 Blood Pressure 81/40 L 136/71 145/76 H Pulse Oximetry 97 99 99 Oxygen Delivery Simple Face Mask Simple Face Mask Simple Face Mask Oxygen Flow Rate 10 10 10 06/05/24 12:05 06/05/24 12:20 06/05/24 12:35 Temperature Pulse Rate 100 95 96 Respiratory Rate 12 14 12 Blood Pressure 138/72 138/77 135/69 Pulse Oximetry 95 96 95 Oxygen Delivery Nasal Cannula Nasal Cannula Nasal Cannula Oxygen Flow Rate 2 2 2 06/05/24 12:50 06/05/24 13:05 06/05/24 15:15 Temperature Pulse Rate 95 94 Respiratory Rate 12 16 Blood Pressure 130/75 133/69 Pulse Oximetry 95 96 Oxygen Delivery Nasal Cannula Nasal Cannula Room Air Oxygen Flow Rate 2 2 06/05/24 19:50 06/05/24 20:05 06/05/24 20:45 Temperature 97.3 F L 97.5 F L 97.2 F L Pulse Rate 86 92 95 Respiratory Rate 18 20 16 Blood Pressure 149/72 H 145/66 H 163/68 H Pulse Oximetry 95 97 96 Oxygen Delivery Oxygen Flow Rate 06/05/24 20:00 06/05/24 21:50 06/05/24 23:08 Temperature 97.6 F 97.7 F Pulse Rate 98 98 Respiratory Rate 18 20 Blood Pressure 152/71 H 156/79 H Pulse Oximetry 94 95 Oxygen Delivery Room Air Oxygen Flow Rate 06/06/24 04:30 Temperature 98.6 F Pulse Rate 102 H Respiratory Rate 20 Blood Pressure 142/71 H Pulse Oximetry 94 Oxygen Delivery Oxygen Flow Rate Intake/Output Intake/Output: Intake & Output 06/03/24 06/04/24 06/05/24 06/06/24 23:59 23:59 23:59 23:59 Intake Total 1550 280 Balance 1550 280 Meds/Results Medications: Active Medications Generic Name Dose Route Start Last Admin Trade Name Freq PRN Reason Stop Dose Admin Acetaminophen 650 mg 06/05/24 14:00 06/06/24 05:20 Acetaminophen 325 Mg Tablet PO 650 mg Q4H TERESA Administration Apixaban 2.5 mg 06/06/24 09:00 Apixaban 2.5 Mg Tablet PO 06/17/24 21:01 Q12HR TERESA Cefdinir 300 mg 06/06/24 12:00 Cefdinir 300 Mg Capsule PO Q12HR TERESA Celecoxib 100 mg 06/06/24 08:00 Celecoxib 100 Mg Capsule PO DAILY@0800 [facility] Diphenhydramine HCl 25 mg 06/05/24 13:23 Diphenhydramine Hcl Inj 50 Mg/Ml Vial IV PUSH Q6H PRN Itching Divalproex Sodium 250 mg 06/05/24 17:00 06/05/24 15:[address] 250 Mg Tabec PO 250 mg BID TERESA Administration Famotidine 20 mg 06/05/24 21:00 06/05/24 20:33 Famotidine 20 Mg Tablet PO 20 mg Q12HR TERESA Administration Folic Acid 1 mg 06/06/24 09:00 Folic Acid 1 Mg Tablet PO DAILY [facility] Lamotrigine 400 mg 06/05/24 21:00 06/05/24 20:33 Lamotrigine 100 Mg Tablet PO 400 mg Q12HR TERESA Administration Morphine Sulfate 2 mg 06/05/24 13:23 Morphine Sulfate (*Crx) 2 Mg/Ml Inj IV PUSH Q2H PRN Breakthrough Pain Rated 4-6 or NPO Naloxone HCl 0.1 mg 06/05/24 13:23 Naloxone Hcl 0.4 Mg/Ml Vial IV PUSH Q2M PRN Opiate Reversal Olmesartan 40 mg 06/06/24 09:00 Olmesartan Medoxomi
--- NOTE | 2024-06-06 07:53 | PM.DS ---
DS: Admitting Diagnosis Discharge Date 06/06 Admitting Diagnosis Left knee DJD DS: Discharge Diagnosis Discharge Diagnosis (1) Osteoarthritis of left knee: Qualifiers: Osteoarthritis type: primary Qualified Code(s): M17.12 - Unilateral primary osteoarthritis, left knee Code(s): M17.12 - Unilateral primary osteoarthritis, left knee Status: Acute DS: Summary Hospital Course Hospital Course: 73-year-old female who underwent left total knee arthroplasty on 06/05. Underwent the procedure without complications. Postoperatively she has been afebrile vital signs are stable. She was up walking the day of surgery with physical therapy. She is on Eliquis for DVT prophylaxis. Initially she was on oxycodone 2.5 mg for pain control, morning of postop day 1 she needed to have this increased to 5 mg due to increased pain in the knee once the soft tissue block wore off. She is also on Celebrex 100 mg once a day. She is on scheduled Tylenol every 4 hours. Morning of postop day 1 hemoglobin was 8.5. Rest of her labs were normal. Patient was asymptomatic from the anemia. Blood pressure remained normal, patient was having no dizziness or lightheadedness or chest pains. Patient will be discharged home on 06/06. She was advised to keep leg elevated home to prevent swelling in the knee. She is to do her exercises every hour while awake. She has outpatient therapy starting next week. She will go home with a 1 week course of Omnicef. She also go home with Senokot MiraLax. Patient was advised any questions or concerns she is to call the office otherwise we will see her at her appointments. Time Spent with Patient Time attestation: Total time spent providing and/or coordinating discharge services: DS: Data Data Completed and Pending Labs on day of discharge: Labs from last 24 hours 06/06/24 05:43 WBC 3.9 L RBC 2.95 L Hgb 8.5 L D Hct 26.8 L MCV 90.8 MCH 28.8 MCHC 31.7 L RDW 14.1 Plt Count 144 L D MPV 10.4 Immature Gran % (Auto) 0.3 Neut % (Auto) 82.6 H Lymph % (Auto) 8.5 L [place] % (Auto) 7.8 Eos % (Auto) 0.5 Baso % (Auto) 0.3 Lymph # (Auto) 0.33 L [place] # (Auto) 0.3 Eos # (Auto) 0.0 Baso # (Auto) 0.0 Abs Immat Gran (auto) 0.01 Absolute Neuts (auto) 3.2 Absolute Nucleated RBC 0.000 Nucleated RBC % 0.0 Sodium 133 L Potassium 3.8 Chloride 99 Carbon Dioxide 26 Anion Gap 8 BUN 10 Creatinine 0.60 L Estim Creat Clear Calc 70 Estimated GFR > 60 Glucose 137 H Calcium 8.4 Discharge Plan Discharge Patient Disposition: Home, Self-Care Discharge Instructions: ROBE PAIZ M.D [facility] [address] [address] [address] [place] [address] POST-OPERATIVE DISCHARGE INSTRUCTIONS TOTAL KNEE ARTHROPLASTY 1. When resting, do not rest in the chair.When resting, lie on your back, with back flat on the couch or bed, with leg elevated above heart to minimize swelling. You may put a pillow under your head. . Significant swelling could indicate a blood clot and if this occurs call the office (or go to the ER) to have a venous ultrasound. Therefore, do not rest in a chair. 2. At least five times a day spend several minutes stretching your knee into flexion while sitting in the chair and also stretching your knee out straight The abilities to bend your knee fully and straighten your knee fully are two most important knee functions to focus on during your recovery. 3. It is ok to sit in chair to eat, use the toilet and receive a guest and to do your stretching exercises, but, sitting in a chair will cause your leg to swell. Therefore, avoid additional time sitting in the chair. and don't rest in the chair. 4. Wound Care: Nursing will give you an additional Mepilex dressing at the time of discharge. Patient to remove the dressing and apply a new Mepilex dressing at home 7 days after surgery and leave the dressing on until seen in office.
[2024-06-06] MEDS: ceFAZolin 2 GM/D5W 50 ML 2 GM/50 ML BAG IVPB (08:16)
[2024-06-06] MEDS: FAMOTIDINE 20 MG TABLET PO (08:29)
[2024-06-06] MEDS: CELECOXIB 100 MG CAPSULE PO (08:29)
[2024-06-06] MEDS: DIVALPROEX SODIUM DR 250 MG TABEC PO (08:29)
[2024-06-06] MEDS: PHENYTOIN SODIUM 100 MG EXTENDED RELEASE CAP 200 MG PO (08:29)
[2024-06-06] MEDS: oxyCODONE HCL (*CRX) 5 MG TAB IR PO (08:30)
[2024-06-06] MEDS: SENNA/DOCUSATE SODIUM TABLET 2 TAB PO (08:30)
[2024-06-06] MEDS: APIXABAN 2.5 MG TABLET PO (08:30)
[2024-06-06] MEDS: OLMESARTAN MEDOXOMIL 20 MG TABLET 40 MG PO (08:30)
[2024-06-06] MEDS: FOLIC ACID 1 MG TABLET PO (08:30)
[2024-06-06] MEDS: lamoTRIgine 100 MG TABLET 400 MG PO (11:15)
[2024-06-06] MEDS: CEFDINIR 300 MG CAPSULE PO (11:15)
--- NOTE | 2024-06-06 12:23 | P.PNAN_ITS ---
Anes - Prog Note Post-Op Date/Time: 06/06/24 12:23 Cardiovascular status: normal Respiratory status: normal Airway patency: baseline Mental status: baseline Post-Op hydration status: normal Vital Signs: Last Vital Signs Temp 36.8 C 06/06/24 07:08 Pulse 99 06/06/24 07:08 Resp 18 06/06/24 07:08 BP 141/84 H 06/06/24 07:08 Pulse Ox 97 06/06/24 07:08 O2 Del Method Room Air 06/05/24 20:00 O2 Flow Rate 2 06/05/24 13:05 Pain Score (VAS): 0 I/O: Intake & Output 06/05/24 06/06/24 06/06/24 23:59 07:59 15:59 Intake Total 350 280 120 Balance 350 280 120 Laboratory Tests 06/06/24 05:43 06/06/24 05:43 06/06/24 05:43 WBC 3.9 L RBC 2.95 L Hgb 8.5 L D Hct 26.8 L MCV 90.8 MCH 28.8 MCHC 31.7 L RDW 14.1 Plt Count 144 L D MPV 10.4 Immature Gran % (Auto) 0.3 Neut % (Auto) 82.6 H Lymph % (Auto) 8.5 L [place] % (Auto) 7.8 Eos % (Auto) 0.5 Baso % (Auto) 0.3 Lymph # (Auto) 0.33 L [place] # (Auto) 0.3 Eos # (Auto) 0.0 Baso # (Auto) 0.0 Abs Immat Gran (auto) 0.01 Absolute Neuts (auto) 3.2 Absolute Nucleated RBC 0.000 Nucleated RBC % 0.0 Sodium 133 L Potassium 3.8 Chloride 99 Carbon Dioxide 26 Anion Gap 8 BUN 10 Creatinine 0.60 L Estim Creat Clear Calc 70 Estimated GFR > 60 Glucose 137 H Calcium 8.4 Post-procedural complaints: none Patient Feedback: Patient satisfied with anesthetic care.
--- NOTE | 2024-06-06 12:23 | WPDANESEPP ---
Anes - Eval Pre Procedure Procedure: Operation Date: 06/05/24 07:30 Proposed Procedures p Left Total Knee Arthroplasty - Guille Ricks MD Date/Time: 06/06/24 12:23 Pre Op Diagnosis: oa left knee Patient Data Age: 73 Gender: F Height: 1.57 m Weight: 84.1 kg Last Vital Signs Temp 36.8 C 06/06/24 07:08 Pulse 99 06/06/24 07:08 Resp 18 06/06/24 07:08 BP 141/84 H 06/06/24 07:08 Pulse Ox 97 06/06/24 07:08 O2 Del Method Room Air 06/05/24 20:00 O2 Flow Rate 2 06/05/24 13:05 Allergies Allergy/AdvReac Type Severity Reaction Status Date / Time No Known Allergies Allergy Verified 06/05/24 07:17 Home Medications Medication Instructions Recorded Confirmed Type folic acid 1 mg tablet 1 mg PO DAILY #90 tabs 01/11/24 06/04/24 Rx olmesartan 40 mg tablet 40 mg PO DAILY #30 tabs 01/28/24 06/04/24 Rx divalproex 250 mg tablet,delayed 250 mg PO BID #180 tabs 01/31/24 06/04/24 Rx release phenytoin sodium extended 100 mg 200 mg PO BID #360 caps 01/31/24 06/04/24 Rx capsule calcium polycarbophil 625 mg 1,250 mg PO DAILY 05/19/24 06/04/24 History tablet (FiberCon) vit C 250 mg-vit E 200 unit-zinc 2 cap PO HS 05/19/24 06/04/24 History ox 12.5 ap-kgralc-llbkpx-zeax capsule (ICaps AREDS2) rabeprazole 20 mg tablet,delayed 20 mg PO DAILY #30 tabs 05/21/24 06/05/24 Rx release (AcipHex) lamotrigine 200 mg tablet 400 mg PO BID 06/04/24 06/05/24 History acetaminophen 325 mg tablet 650 mg PO Q4H #90 tabs 06/06/24 Rx apixaban 2.5 mg tablet (Eliquis) 2.5 mg PO Q12HR #28 tabs 06/06/24 Rx cefdinir 300 mg capsule 300 mg PO Q12HR #14 caps 06/06/24 Rx celecoxib 100 mg capsule (Celebrex) 100 mg PO DAILY@0800 #60 caps 06/06/24 Rx oxycodone 5 mg tablet 5 mg PO Q4HR #40 tabs 06/06/24 Rx polyethylene glycol 3350 17 gram 17 g PO QAM #30 ea 06/06/24 Rx oral powder packet (Miralax) sennosides 8.6 mg-docusate sodium 2 tab-cap PO BID #60 tabs 06/06/24 Rx 50 mg tablet (Senokot-S) Laboratory Tests 06/06/24 05:43 WBC 3.9 L K/mm3 (4.5-10.0) RBC 2.95 L M/mm3 (4.2-5.4) Hgb 8.5 L D g/dL (12.0-15.0) Hct 26.8 L % (37.0-47.0) MCV 90.8 fl (80-100) MCH 28.8 pg (26-34) MCHC 31.7 L g/dl (32-36) RDW 14.1 % (11.5-14.5) Plt Count 144 L D k/mm3 (150-375) MPV 10.4 fl (7.4-10.4) Immature Gran % (Auto) 0.3 % (0-0.5) Neut % (Auto) 82.6 H % (45.5-73.1) Lymph % (Auto) 8.5 L % (18.3-44.2) [place] % (Auto) 7.8 % (2.6-8.5) Eos % (Auto) 0.5 % (0-4.4) Baso % (Auto) 0.3 % (0.2-1.2) Lymph # (Auto) 0.33 L K/mm3 (0.9-3.2) [place] # (Auto) 0.3 K/mm3 (0.1-0.6) Eos # (Auto) 0.0 K/mm3 (0-0.3) Baso # (Auto) 0.0 K/mm3 (0.0-0.1) Abs Immat Gran (auto) 0.01 K/mm3 (0.00-0.031) Absolute Neuts (auto) 3.2 K/mm3 (1.3-6.7) Absolute Nucleated RBC 0.000 K/mm3 (0.0-0.012) Nucleated RBC % 0.0 % (0.0-0.2) Sodium 133 L mmol/L (137-145) Potassium 3.8 mmol/L (3.4-5.0) Chloride 99 mmol/L (98-107) Carbon Dioxide 26 mmol/L (22-30) Anion Gap 8 mmol/L (4-12) BUN 10 mg/dL (7-17) Creatinine 0.60 L mg/dL (0.7-1.0) Estim Creat Clear Calc 70 ml/min Estimated GFR > 60 (59 - ) Glucose 137 H mg/dL (65-110) Calcium 8.4 mg/dL (8.4-10.2) Patient hx anesthesia problems: none Family hx anesthesia problems: none Results Review: All pre-operative results and documents have been reviewed as part of the pre-operative evaluation. [facility] Past Medical History Medical History (Updated 06/05/24 @ 20:59 by Tashia Dueñas, [employer]) Acute bronchitis Chest x-ray revealed no active lung disease. Cardiomegaly noted 04/17/2024. Acute non-recurrent maxillary sinusitis Anemia Hemoglobin 11.6, iron 115 with 54% saturation and ferritin 102 with vitamin B12 370 and folic acid 24 on 08/31/2023. Hemoglobin 9.9 on 05/19/2024. Basal cell carcinoma with sebaceous d
== END 2024-06-06 11:50 | disposition home or self-care (01) ==
LOC: ANHSURGERY 06:00 → ANH3MEDSUR 13:26
PROVIDERS: Physician Assistant Surgical; PCP Family Medicine; Visit Provider Orthopaedic Surgery
PROC: (CPT 27447; principal; 2024-06-05 07:30)
DX: M17.12 Unilateral primary osteoarthritis, left knee (principal); G89.18 Other acute postprocedural pain; D64.9 Anemia, unspecified; M48.10 Ankylosing hyperostosis [Forestier], site unspecified; I10 Essential (primary) hypertension; G40.909 Epilepsy, unspecified, not intractable, without status epilepticus; E53.8 Deficiency of other specified B group vitamins; Z85.72 Personal history of non-Hodgkin lymphomas
CPT/HCPCS: 27447; 36415; 73560; 80048; 80164; 80185; 80307; 82040; 83036; 85014; 85018; 85025; 86850; 86900; 86901; 87081; 93005; 97110; 97116; 97161; 97165; 97530; 97535; A9270; C1713; C1776; J0171; J0330; J0690; J1100; J1170; J1885; J2250; J2270; J2371; J2405; J2704; J2795; J3010; J3370; J7030; J7120

== ENCOUNTER 2024-06-30 14:45 | Outpatient (RCR) | payer MEDICARE, SELFPAY ==
--- NOTE | 2024-06-10 15:33 | OPREHPOC ---
Outpatient Therapy Plan of Care This is a Multidisciplinary Plan of Care that may contain components documented by all disciplines (PT, OT, and ST.) PT Problem 1 PT Problem #1 Knowledge Deficit PT Goal 1 Goal [place] with HEP PT Problem 2 PT Problem #2 Impaired Range of Motion PT Goal 1 Goal Achieve terminal L knee extension Target Visit 8 PT Goal 2 Goal Achieve 120 degrees of left knee flexion Target Visit 8 PT Problem 3 PT Problem #3 Impaired Gait PT Goal 1 Goal Ambulate with single point cane in R UE with even stride length bilaterally Target Visit 8 PT Goal 2 Goal Demonstrate 2cm reduction in knee joint line swelling indicative of soft tissue healing Target Visit 8 PT Goal 1 Goal Demonstrate gross L knee strength of 5/5 Target Visit 8
--- NOTE | 2024-06-10 15:33 | PTOPEVAL1 ---
Assessment and note entered by Oswaldo Mchugh, PT Evaluation Information Assessment Status Evaluation Diagnosis Left TKA, Trochanteric bursitis Onset 06/05/24 Subjective Information Reports that overall she feels she is getting around well. Pain is all anterior knee but some on side of hip. She was mostly independent prior to surgery but occasionally used a cane for balance. Denies any falls in the past year. She is sleeping with leg elevated with mixed sleep. She plans to get back to driving and is not currently. She is taking aragon medications as prescribed. Follows up with Dr. Baez 06/18/24. Reported Pain Level Pain Score 6: Self Report Assessment PT Clinical Summary Patient presents with signs and symptoms consistent with total knee arthroplasty. She is having some trochanteric pain and discomfort. Knee ROM lacking minimally in extension and on pace for knee flexion ROM as expected 1 week out of surgery. 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 Plan of Care Interventions Electrical Stimulation,Gait Training,Manual Therapy,Neuro Re-education,Therapeutic Activities, Therapeutic Exercise PT Services Indicated Yes Treatment Frequency and 2x/week for 8 visits Duration These treatments will address the objective and functional deficits as defined above. The patient will be advanced safely and appropriately in order for the patient to progress towards his/her prior level of function. Additional exercises will be introduced and as well as a comprehensive home exercise program upon discharge, if needed, ?to ensure carryover of functional gains achieved in the clinic. This treatment plan has been reviewed and agreement upon by the patient.
--- NOTE | 2024-07-09 14:20 | PCPTNOTE ---
Patient called & cancelled scheduled appointment this date due to her surgeon saying she no longer needs therapy.
--- NOTE | 2024-07-11 08:29 | PTOPDC ---
Assessment and note entered by Oswaldo Mchugh, PT Evaluation Information Assessment Status Discharge - Pt Not Present Diagnosis Left TKA, Trochanteric bursitis Onset 06/05/24 Subjective Information Patient followed up with MD and both were satisfied with progress. MD released from PT at this time and patient requests discharge to HEP. Assessment PT Clinical Summary Patient to be discharged from skilled therapy per request in agreement with MD. No Concerns at this time. Please see last treatment note for D/C status. Plan of Care PT Services Indicated D/C to HEP
== END 2024-07-11 08:52 | disposition home or self-care (01) ==
LOC: ANHGOSHPT 14:45
PROVIDERS: PCP Family Medicine; Visit Provider Orthopaedic Surgery
DX: M17.12 Unilateral primary osteoarthritis, left knee (principal); M70.62 Trochanteric bursitis, left hip; R29.898 Other symptoms and signs involving the musculoskeletal system; Z96.652 Presence of left artificial knee joint
CPT/HCPCS: 97110; 97112; 97140; 97161; 97530

== ENCOUNTER 2024-09-17 14:32 | Outpatient (CLI) | payer MEDICARE, SELFPAY ==
[2024-09-17 15:03] LABS: Basophils Percent Auto 0.4 % (0.2-1.2); Eosinophils Absolute Auto 0.1 K/mm3 (0-0.3); Eosinophils Percent Auto 2.3 % (0-4.4); Hematocrit 32.8 % (37.0-47.0); Hemoglobin 10.9 g/dL (12.0-15.0); Immature Granulocyte Absolute 0.01 K/mm3 (0.00-0.031); Immature Granulocyte Percent A 0.4 % (0-0.5); Lymphocytes Absolute Auto 0.92 K/mm3 (0.9-3.2); Lymphocytes Percent Auto 35.7 % (18.3-44.2); Mean Corpuscular HGB Conc 33.2 g/dl (32-36); Mean Corpuscular Hemoglobin 28.8 pg (26-34); Mean Corpuscular Volume 86.5 fl (80-100); Mean Platelet Volume 8.9 fl (7.4-10.4); Monocytes Absolute Auto 0.4 K/mm3 (0.1-0.6); Neutrophils Absolute Auto 1.2 K/mm3 (1.3-6.7); Neutrophils Percent Auto 47.2 % (45.5-73.1); Platelet Count Result 188 k/mm3 (150-375); Red Blood Count 3.79 M/mm3 (4.2-5.4); Red Cell Distribution Width 12.9 % (11.5-14.5); White Blood Count 2.6 K/mm3 (4.5-10.0)
[2024-09-17 15:58] LABS: Add Urine Microscopic? YES; Appearance Urine Clear (Clear); Bacteria Urine None Seen /hpf; Bilirubin Urine Negative (Negative); Blood Urine Negative (Negative); Color Urine Yellow (Yellow); Glucose Urine UA Negative (Negative); Ketones Urine Negative (Negative); Leukocyte Esterase Ur 2+ LEU/UL (Negative); Need Manual Microscopic Reviewed; Nitrate Urine Negative (Negative); Non Pathogenic Casts 0-2; Protein Urine Negative (Negative); RBC Urine 0-2 /hpf (0-2); Specific Grav Ur 1.008 (1.001-1.035); Squamous Epithelial Cell Urine None Seen /hpf (Few); Urobilinogen Urine 0.2 mg/dL (<2.0); WBC Urine 0-5 /hpf (0-3); pH Urine 7.5 (5.0-9.0)
[2024-09-17 16:57] LABS: Iron 94 ug/dL (37-170)
[2024-09-17 17:06] LABS: Alanine Aminotransferase 11 U/L (6-35); Alkaline Phosphatase 91 U/L (38-126); Anion Gap 8 mmol/L (4-12); Aspartate Amino Transferase 18 U/L (14-36); Bilirubin,Total 0.2 mg/dL (0.2-1.3); Blood Urea Nitrogen 14 mg/dL (7-17); Calcium 9.1 mg/dL (8.4-10.2); Carbon Dioxide 28 mmol/L (22-30); Chloride 98 mmol/L (98-107); Estimated Glomerular Filt Rate > 60; Glucose 95 mg/dL (65-110); Percent Iron Saturation 46 % (20-50); Potassium 3.9 mmol/L (3.4-5.0); Sodium 134 mmol/L (137-145)
== END 2024-09-17 14:33 | disposition home or self-care (01) ==
LOC: ANHLAB 14:37
PROVIDERS: PCP Family Medicine; Visit Provider Family Medicine
DX: I10 Essential (primary) hypertension (principal); D64.9 Anemia, unspecified; G40.909 Epilepsy, unspecified, not intractable, without status epilepticus
CPT/HCPCS: 36415; 80048; 80076; 81001; 82607; 82728; 83540; 83550; 85025

== ENCOUNTER → 2024-09-18 14:01 | Outpatient (CLI) | payer MEDICARE, SELFPAY ==
--- NOTE | ~2024-09-18 | XR_ITS ---
EXAMINATION: XR shoulder LT min 2V DATE: 09/18/2024 14:18 INDICATION: Left shoulder pain TECHNIQUE: AP internally and externally rotated, AP oblique externally rotated and axillary views of the left shoulder were obtained. COMPARISON: None FINDINGS: Normal alignment. No fracture.Mild acromioclavicular osteoarthritis. Severe left glenohumeral osteoa rthritis with nonuniform joint space narrowing and remodeling of the articular surfaces at the infero medial aspect of the humeral head and at the inferior glenoid. There small to moderate-sized marginal osteophytes along the inferior glenoid. There are some cystic change along the greater tuberosity wh ich can be seen in the setting of rotator cuff disease. Visualized portion of the lungs are clear. So ft tissues are unremarkable. IMPRESSION: Severe left glenohumeral osteoarthritis. Reviewed, dictated and finalized at location A.
== END ==
LOC: EXPTROY 14:04
PROVIDERS: PCP Family Medicine; Visit Provider Family Medicine
DX: M19.012 Primary osteoarthritis, left shoulder (principal)
CPT/HCPCS: 73030

== ENCOUNTER 2025-01-16 12:51 | Outpatient (CLI) | payer MEDICARE, SELFPAY | END 2025-01-16 12:52 | disposition home or self-care (01) | LOC: MICIMG 12:54 | PROVIDERS: PCP Family Medicine; Visit Provider Orthopaedic Surgery | DX: M16.0 Bilateral primary osteoarthritis of hip (principal); M54.42 Lumbago with sciatica, left side; M43.06 Spondylolysis, lumbar region; G89.29 Other chronic pain | CPT/HCPCS: 72148; 72192; 73700 ==

== ENCOUNTER 2025-05-19 15:41 | Outpatient (CLI) | payer MEDICARE, SELFPAY ==
--- OUTSIDE RECORDS SUMMARY | 2025-05-19 15:45 | XMS_ITS | Referral Summary ---
Author Organization [facility] Address [address] [place] [address] Care Team Providers Care Prime Minister Name Role Phone Michel Ramirez MD Primary Care Provider [phone] Encounters Date Type Department Care Team Description 05/07/2025 10:33 AM CDT - 05/08/2025 10:17 AM CDT Hospital Encounter [address] [id number] Boston Cavanaugh MD Arthritis of left shoulder (Primary Dx) Discharge Disposition: Discharge to home or self care 05/07/2025 1:10 PM CDT - 05/07/2025 3:40 PM CDT Surgery [facility] Operating Room [address] [place] [id number] Boston Cavanaugh MD Left reverse shoulder arthroplasty 05/07/2025 1:54 PM CDT Anesthesia Event [facility] Operating Room [address] [place] [id number] Smaia Hodge MD Richardson, Genea Michelle, NP 05/06/2025 Telephone [facility] Orthopaedic Surgery [address] [facility] [address]th [place] [address] [place] [phone] Boston Cavanaugh MD 04/22/2025 10:52 AM CDT - 04/22/2025 11:59 PM CDT Hospital Encounter [facility] Radiology [facility] [address] [place], [place] [id number] Boston Cavanaugh MD Arthritis of left shoulder Discharge Disposition: Discharge to home or self care 04/22/2025 1:30 PM CDT Pre-Admission Testing [facility] for Preoperative Assessment and Planning [place] ([facility]) [address] [place] [id number] Preoperative testing (Primary Dx); Osteoarthritis of left glenohumeral joint 03/19/2025 Orders Only [facility] Orthopaedic Surgery [address] [place] [address] Advanced [facility] 12th [place] [address] [place] [address] Boston Cavanaugh MD Arthritis of left shoulder (Primary Dx) 03/18/2025 12:48 PM CDT - 03/18/2025 11:59 PM CDT Hospital Encounter [facility] Radiology [facility] ([facility]) [address] [place] [id number] Left shoulder pain, unspecified chronicity Discharge Disposition: Discharge to home or self care 03/18/2025 1:00 PM CDT Office Visit [facility] Orthopaedic Surgery [address] [place] [address] [address]th [place] [address] [place] [address] Boston Cavanaugh MD Arthritis of left shoulder (Primary Dx); Left shoulder pain, unspecified chronicity from Last 3 Months Allergies No known active allergies Medications divalproex DR (DEPAKOTE) 250 mg EC tabletIndicatio ns:epilepsy,Las t seizure 10/25/2019 Take 1 tablet (250 mg total) by mouth 2 (two) times a day Active folic acid (FOLVITE) 1 mg tabletIndicatio ns:Folate Deficiency Take 1 tablet (1 mg total) by mouth every morning 5 Active lamoTRIgine (LaMICtal) 200 mg tabletIndicatio ns:Seizures Take 1 tablet (200 mg total) by mouth 2 (two) times a day 5 Active olmesartan (BENICAR) 40 mg tabletIndicatio ns:hypertension Take 1 tablet (40 mg total) by mouth every morning 5 Active phenytoin ER (DILANTIN) 100 mg ER capsuleIndicati ons:Complex-Par tial Epilepsy Take 2 capsules (200 mg total) by mouth 2 (two) times a day Active meloxicam (MOBIC) 15 mg tabletIndicatio ns:Osteoarthrit is Take 1 tablet (15 mg total) by mouth every morning 5 Active acetaminophen ER (TYLENOL) 650 mg 8 hr tabletIndicatio ns:Pain Take 2 tablets (1,300 mg total) by mouth every 8 (eight) hours as needed for pain Active polycarbophil (FIBERCON) 625 mg tabletIndicatio ns:constipation Take 1 tablet (625 mg total) by mouth every morning Active cyanocobalamin (Vitamin B-12) 1,000 mcg tabletIndicatio ns:Prevention of Vitamin B12 Deficiency Take 1 tablet (1,000 mcg total) by mouth every morning Active vit A/vit C/vit E/zinc/copper (PRESERVISION AREDS ORAL)Indication s:Eye health Take 2 tablets by mouth nightly Active white petrolatum-mine ral oil (Artificial Tears, donell/min,) ointmentIndicat ions:Dry eyes Apply 1 Application to both eyes nightly Pure and clean for dry eyes Active oxyCODONE (ROXICODONE) 5 mg immediate release tabletIndicatio ns:Pain Take 1 tablet (5 mg total) by mouth every 4 (four) hours as needed for pain 20 tablet 5 Active aspirin 81 mg enteric coated tabletIndicatio ns:Deep Vein Thrombosis Prevention Take 1 tablet (81 mg total) by mouth 2 (two) times a day for 14 days 28 tablet 5 025 Active docusate sodium (COLACE) 100 mg capsuleIndicati ons:constipatio n Take 1 capsule (100 mg total) by mouth 2 (two) times a day 30 capsule [address] (PROTONIX) 20 mg EC tabletIndicatio ns:Stress Ulcer Prophylaxis Take 1 tablet (20 mg total) by mouth daily 30 tablet 5 025 Active FA-D4-N5-B3-B6- H29-N-Sp 1 mg-1.5 mg- 1.7 mg-50 mg tablet 025 Discontin ued(Error ) mupirocin (BACTROBAN) 2 % ointmentIndicat ions:Minor Bacterial Skin Infections,Righ t ear Apply 1 Application topically 2 (two) times a day 5 025 Discontin ued(Stop Taking at Discharge ) Active Problems Problem Noted Date Diagnosed Date Arthritis of left shoulder 05/07/2025 Osteoarthritis of left glenohumeral joint 2024 Lymphoma 09/27/2011 Overview (02/28/2018): Description: Malignant Lymphoma Social History Tobacco Use Types Packs/Day Years Used Date Smoking Tobacco: Never Passive Smoke Exposure: Past Smokeless Tobacco: Never Tobacco Cessation:Counseling Given: Not Answered AUDIT-C Answer Date Recorded Q1: How often do you have a drink containing alcohol? Never 05/07/2025 Q2: How many drinks containi ng alcohol do you have on a typical day when you are drinking? Patient does not drink Q3: How often do you have si x or more drinks on one occasion? Never 05/07/2025 Personal Safety Answer Date Recorded Have you ever been in or are you currently in a harmful physical or emotional relationship or is someone making you feel afraid or unsafe? Denies 05/07/2025 Comments No Sex and Gender Information Value Date Recorded Sex Assigned at Not on file Legal Sex Female 1:06 AM [facility] Gender Identity Not on file Sexual Orientation Not on file Last Filed Vital Signs Vital Sign Reading Time Taken Comments Blood Pressure 144/60 05/08/2025 8:31 AM CDT Pulse 98 05/08/2025 8:26 AM CDT Temperature 37 C (98.6 F) 05/08/2025 8:03 AM CDT Respiratory Rate 16 05/08/2025 4:20 AM CDT Oxygen Saturation 98% 05/08/2025 8:26 AM CDT Inhaled Oxygen Concentration - - Weight 76.5 kg (168 lb 10.4 oz) 025 11:09 AM CDT Height 160 cm (5' 3) 04/22/2025 1:36 PM CDT Body Mass Index 29.88 04/22/2025 1:36 PM CDT Plan of Treatment Not on file Medical Devices Implanted Type Area Kitchen And Bath Designer Device Identifier Shelf Expiration Date Model / Serial / Lot [employer] Screw Glenoid Locking Reverse Aequalis Perform 5.0x22mm Titanium [id number] - [id number] Implanted:Qty: 1 on 05/07/2025 by Boston Cavanaugh MD at [facility] Screw Left: Shoulder [employer] [id number] / / [employer] Aequalis Perform Reversed 5mm 18mm Peripheral Glenoid Screw [id number] - [id number] Implanted:Qty: 1 on 05/07/2025 by Boston Cavanaugh MD at [facility] Screw Left: Shoulder [employer] [id number] / / [employer] Aequalis Perform Reversed 5mm 38mm Peripheral Glenoid Screw [id number] - [id number] Implanted:Qty: 1 on 05/07/2025 by Boston Cavanaugh MD at [facility] Screw Left: Shoulder [employer] [id number] / / [employer] Implant Screw Central Glenoid Locking Reverse Tornier Perform 6.5x25mm Titanium [id number] - [id number] Implanted:Qty: 1 on 05/07/2025 by Boston Cavanaugh MD at [facility] Screw Left: Shoulder [employer] [id number] / / Knee Replacement Bilateral: Knee [employer] Baseplate Glenoid Reverse Aequalis Perform 25mm [id number] - [id number] - [id number] Implanted:Qty: 1 on 05/07/2025 by Boston Cavanaugh MD at [facility] Left: Shoulder [employer] 02/18/2030 [id number] / [id number] / [employer] Glenosphere Reverse Shoulder Cannulated Eccentric +3mm Inferior Offset [place] Chromium Tornier Perform 39mm [id number] - [id number] - [id number] Implanted:Qty: 1 on 05/07/2025 by Boston Cavanaugh MD at [facility] [employer] [id number] 10/19/2028 [id number] / [id number] / [employer] Insert Perform 10 Deg Ret Ve [id number] - [id number] - [id number] Implanted:Qty: 1 on 05/07/2025 by Boston Cavanaugh MD at [facility] Left: Shoulder [employer] [id number] 11/18/2025 [id number] / [id number] / [employer] Tray Stem Humeral Shoulder Reverse Long Tornier Perform [id number] - [id number] - [id number] Implanted:Qty: 1 on 05/07/2025 by Boston Cavanaugh MD at [facility] Left: Shoulder [employer] 02/16/2030 [id number] / [id number] / [employer] Spacer Humeral Reverse Size 3/4 +9 Perform [id number] - [id number] - [id number] Implanted:Qty: 1 on 05/07/2025 by Boston Cavanaugh MD at [facility] Left: Shoulder [employer] 09/22/2029 [id number] / [id number] / Procedures Procedure Name Priority Date/Time Associated Diagnosis Comments EGFR Timed 05/07/2025 11:24 PM CDT HEMOGLOBIN AND HEMATOCRIT Timed 05/07/2025 11:24 PM CDT BASIC METABOLIC PANEL Timed 05/07/2025 11:24 PM CDT XR SHOULDER LEFT 2 OR MORE VIEWS IP Routine 05/07/2025 4:32 PM CDT ANESTHESIA INTUBATION Routine 05/07/2025 2:18 PM CDT ARTHROPLASTY SHOULDER - REVERSE TOTAL 05/07/2025 1:54 PM CDT Osteoarthritis of left glenohumeral joint ME AN PROCEDURE PLACEHOLDER Routine 05/07/2025 12:54 PM CDT ME AN PROCEDURE PLACEHOLDER Routine 05/07/2025 12:54 PM CDT PAIN BLOCK Routine 05/07/2025 10:58 AM CDT EGFR Routine 04/22/2025 2:31 PM CDT Osteoarthritis of left glenohumeral joint DIFFERENTIAL AUTO Routine 04/22/2025 2:3 1 PM CDT Preoperative testing CBC WITH AUTO DIFFERENTIAL Routine 04/22/2025 2:31 PM CDT Preoperative testing COMPREHENSIVE METABOLIC PANEL Routine 04/22/2025 2:31 PM CDT Osteoarthritis of left glenohumeral joint CT SHOULDER LEFT WO CONTRAST Schedule Routine, Read Routine (OP Routine) 04/22/2025 11:40 AM CDT Arthritis of left shoulder XR SHOULDER LEFT 2 OR MORE VIEWS Schedule Routine, Read Routine (OP Routine) 03/18/2025 12:54 PM CDT Left shoulder pain, unspecified chronicity from Last 3 Months Results * eGFR (05/07/2025 11:24 PM CDT) eGFR >90 >=60 mL/min/1. 73 m2 Comment: Interpretive Data Reference Interval Normal >/= 90 mL/min/1.73m2 Mildly decreased* 60 - 89 mL/min/1.73m2 Mildly to moderately decreased 45 - 59 mL/min/1.73m2 Moderately to severely decreased 30 - 44 mL/min/1.73m2 Severely decreased 15 - 29 mL/min/1.73m2 Kidney Failure < 15 mL/min/1.73m2 *Relative to young adult level Estimated glomerular filtration rate is determined by the 2020 CKD-EPI equation recommended by the National Kidney Foundation (A Unifying Approach to GFR Estimation: Recommendations of the NKF-ASK Task Force on Reassessing the Inclusion of Race in Diagnosing Kidney Disease, JASN 2020). The CKD-EPI equation should not be used for patients with unstable renal function and has not been validated in children and those over 70. Current interpretive data was last reviewed 2021. Blood 05/07/2025 11:2 4 PM CDT 05/07/2025 11:57 PM CDT us Boston Cavanaugh MD LAB BLOOD ORDERABLES Final Result Performing Organization Address [facility] [place] [address] * (ABNORMAL) Hemoglobin and hematocrit (05/07/2025 11:24 PM CDT) [facility] Hgb 10.3(L) 11.9 - 15.5 g/dL Hct 30.8(L) 35.6 - 45.5 % [facility] Blood 05/07/2025 11:2 4 PM CDT 05/07/2025 11:58 PM CDT Narrative [facility] - 05/08/2025 12:09 AM CDT change to CBC when needed Boston Cavanaugh MD LAB BLOOD ORDERABLES Final Result Performing Organization Address [facility] de Phone Number [facility] [place] [address] * (ABNORMAL) Basic metabolic panel (05/07/2025 11:24 PM CDT) [facility] Sodium 136 135 - 145 mmol/L Potassium, pl 4.5 3.3 - 4.9 mmol/L [facility] Chloride 99 97 - 110 mmol/L [facility] CO2 28 22 - 32 mmol/L [facility] Anion gap 9 2 - 15 mmol/L [facility] BUN 14 6 - 25 mg/dL [facility] Creatinine 0.59(L) 0.60 - 1.10 mg/dL [facility] Glucose 129 70 - 199 mg/dL [facility] Comment: Interpretive Data Fasting glucose >/= 126 mg/dl is diagnostic for diabetes. Fasting is defined as no caloric intake for at least 8 hours. Fasting glucose between 100 mg/dl to 125 mg/dl is diagnostic of prediabetes. In a patient with classic symptoms of hyperglycemia or hyperglycemic crisis, a random glucose >/= 200 mg/dl is diagnostic for diabetes. In the absence of unequivocal hyperglycemia, results should be confirmed by repeat testing. The classification and Diagnosis of Diabetes Diabetes Care 202; 46: S19-S40. Current interpretive data was last revised 2022. Calcium 9.2 8.5 - 10.3 mg/dL [facility] Blood 05/07/2025 11:2 4 PM CDT 05/07/2025 11:57 PM CDT Narrative [facility] - 05/08/2025 12:29 AM CDT Daily Boston Cavanaugh MD LAB BLOOD ORDERABLES Final Result [facility] Department [place] [address] * XR Shoulder Left 2+ View (05/07/2025 4:32 PM CDT) Anatomical Region Laterality Modality Upper Extremities, Shoulder Left Comp uted Radiography 05/07/2025 4:35 PM CDT Impressions 05/07/2025 4:35 PM CDT 1. New reverse left total shoulder arthroplasty in expected position. Electronically signed by: Alexsander Riley M.D. Narrative 05/07/2025 4:35 PM CDT EXAMINATION: XR SHOULDER LEFT 2 OR MORE VIEWS HISTORY: Left shoulder osteoarthritis COMPARISON: 03/18/2025 FINDINGS: Two view examination of the left shoulder is performed. There is a new reverse left total shoulder arthroplasty in expected position. There is postoperative soft tissue gas and swelling. No fracture is present. Procedure Note Alexsander Riley MD - 05/07/2025 EXAMINATION: XR SHOULDER LEFT 2 OR MORE VIEWS HISTORY: Left shoulder osteoarthritis COMPARISON: 03/18/2025 FINDINGS: Two view examination of the left shoulder is performed. There is a new reverse left total shoulder arthroplasty in expected position. There is postoperative soft tissue gas and swelling. No fracture is present. IMPRESSION: 1. New reverse left total shoulder arthroplasty in expected position. Electronically signed by: Alexsander Riley M.D. Boston Cavanaugh MD IMG XR PROCEDURES Final Re sult * Airway (05/07/2025 2:18 PM CDT) Narrative Mark Kathleen MD - 05/07/2025 2:18 PM CDT Mark Kathleen MD 05/07/2025 2:20 PM Airway Patient location: OR Urgency: elective Date/time: 05/07/2025 2:05 PM Indications for airway management: airway protection and anesthesia Difficult airway: no Staff: Supervising provider: Samia Hodge MD Placed by: Resident: Mark Kathleen MD Emergent airway documentation: Risks and benefits discussed: yes Consent obtained: yes Consent given by: patient Airway prep: Preoxygenated: yes Patient position: sniffing Mask difficulty assessment: 1 - vent by mask Spontaneous ventilation during airway: absent Sedation level during airway: GA Final airway details: Final airway type: endotracheal airway Tube type: ETT ETT size: 7.0 mm Technique used for successful ETT placement: video laryngoscopy Devices/Methods used in placement: stylet Insertion site: oral Blade type: Kyle Video blade type: Brown Blade size: 3 Cormack-Lehane (video): grade I - full view of glottis ETT to teeth: 21 cm Placement verified by: auscultation and CO2 detection Airway secured with: silk tape Number of attempts: 1 us Samia Hodge MD ANESTHESIA ORDERABLES Final Re sult * ME AN PROCEDURE PLACEHOLDER (05/07/2025 12:54 PM CDT) Narrative Cruz Barnard MD - 05/07/2025 12:54 PM CDT Cruz Barnard MD 05/07/2025 1:31 PM Peripheral Block Patient location during procedure: pre-op holding Reason for block: post-op pain management per surgeon request Ultrasound image in chart or stored: yes Block type: single shot Laterality: left Block type: PECS II Staff: Supervising provider: Cruz Barnard MD Placed by: Resident: Saurabh Riley MD Procedure prep: Preprocedure checklist: patient identified, procedure contraindications assessed, site marked, procedure consent, surgical consent, IV checked, risks, benefits and alternatives discussed, monitors and equipment checked and timeout performed Patient position: head of bed elevated Procedure performed while patient: sedate with meaningful contact Monitoring: oximetry, ECG and blood pressure Supplemental O2: nasal cannula Prep solution: chlorhexidine/alcohol PPE: provider hat/mask, sterile gloves and sterile probe cover and gel Skin infiltrated with lidocaine 1%: yes Peripheral nerve block: Technique: ultrasound guided Needle type: short-bevel, echogenic and insulated Needle gauge: 22 G Needle length: 50 mm Injection assessment: injection made incrementally with constant monitoring, negative aspiration for heme, no paresthesias noted, normal resistance to injection and see flowsheet for medication details Assessment: Block success: full evaluation pending Events: patient tolerated procedure well with no complications Saurabh Riley MD ANESTHESIA ORDERABLES Fi nal Result * ME AN PROCEDURE PLACEHOLDER (05/07/2025 12:54 PM CDT) Cruz Chapman MD - 05/07/2025 12:54 PM CDT Cruz Barnard MD 05/07/2025 1:31 PM Peripheral Block Patient location during procedure: pre-op holding Reason for block: post-op pain management per surgeon request Ultrasound image in chart or stored: yes Block type: single shot Laterality: left Block type: brachial plexus - interscalene Staff: Supervising provider: Cruz Barnard MD Placed by: Resident: Saurabh Riley MD Procedure prep: Preprocedure checklist: patient identified, procedure contraindications assessed, site marked, procedure consent, surgical consent, IV checked, risks, benefits and alternatives discussed, monitors and equipment checked and timeout performed Patient position: head of bed elevated Procedure performed while patient: sedate with meaningful contact Monitoring: ECG, oximetry and blood pressure Supplemental O2: nasal cannula Prep solution: chlorhexidine/alcohol PPE: provider hat/mask, sterile gloves and sterile probe cover and gel Peripheral nerve block: Technique: ultrasound guided Needle type: insulated, short-bevel and echogenic Needle gauge: 22 G Needle length: 50 mm Injection assessment: injection made incrementally with constant monitoring, local visualized surrounding nerve on ultrasound, negative aspiration for heme, no paresthesias noted, normal resistance to injection and see flowsheet for medication details Assessment: Block success: full evaluation pending Events: patient tolerated procedure well with no complications Saurabh Riley MD ANESTHESIA ORDERABLES Fi nal Result * eGFR (04/22/2025 2:31 PM CDT) Pathologist [facility] eGFR >90 >=60 mL/min/1. 73 m2 Comment: Interpretive Data Reference Interval Normal >/= 90 mL/min/1.73m2 Mildly decreased* 60 - 89 mL/min/1.73m2 Mildly to moderately decreased 45 - 59 mL/min/1.73m2 Moderately to severely decreased 30 - 44 mL/min/1.73m2 Severely decreased 15 - 29 mL/min/1.73m2 Kidney Failure < 15 mL/min/1.73m2 *Relative to young adult level Estimated glomerular filtration rate is determined by the 2020 CKD-EPI equation recommended by the National Kidney Foundation (A Unifying Approach to GFR Estimation: Recommendations of the NKF-ASK Task Force on Reassessing the Inclusion of Race in Diagnosing Kidney Disease, JASN 2020). The CKD-EPI equation should not be used for patients with unstable renal function and has not been validated in children and those over 70. Current interpretive data was last reviewed 2021. Blood 04/22/2025 2:31 PM CDT 04/22/2025 4:30 PM CDT us Boston Cavanaugh MD LAB BLOOD ORDERABLES Final Result [facility] Department [place] [address] * Differential, auto (04/22/2025 2:31 PM CDT) Pathologist [facility] Neutrophil abs 2.73 1.50 - 6.50 K/cumm Imm gran abs 0.01 0.00 - 0.10 K/cumm [facility] Lymphocyte abs 0.94 0.80 - 3.30 K/cumm [facility] Monocyte abs 0.45 0.20 - 0.80 K/cumm [facility] Eosinophil abs 0.12 0.00 - 0.50 K/cumm [facility] Basophil abs 0.01 0.00 - 0.10 K/cumm [facility] Neutrophil pct 64.1 % [facility] Comment: Interpretive Data Percent cell count reference ranges are not reported, since discordance with absolute values may lead to misinterpretation of CBC data. Current Interpretive Data was last revised on 2018. Imm gran pct 0.2 % [facility] Comment: Interpretive Data Percent cell count reference ranges are not reported, since discordance with absolute values may lead to misinterpretation of CBC data. Current Interpretive Data was last revised on 2018. Lymphocyte pct 22.1 % [facility] Comment: Interpretive Data Percent cell count reference ranges are not reported, since discordance with absolute values may lead to misinterpretation of CBC data. Current Interpretive Data was last revised on 2018. Monocyte pct 10.6 % [facility] Comment: Interpretive Data Percent cell count reference ranges are not reported, since discordance with absolute values may lead to misinterpretation of CBC data. Current Interpretive Data was last revised on 2018. Eosinophil pct 2.8 % [facility] Comment: Interpretive Data Percent cell count reference ranges are not reported, since discordance with absolute values may lead to misinterpretation of CBC data. Current Interpretive Data was last revised on 2018. Basophil pct 0.2 % [facility] Comment: Interpretive Data Percent cell count reference ranges are not reported, since discordance with absolute values may lead to misinterpretation of CBC data. Current Interpretive Data was last revised on 2018. Blood 04/22/2025 2:31 PM CDT 04/22/2025 4:31 PM CDT Conner Whitmore NP LAB BLOOD ORDERABLES Fin al Result [facility] Department [place] [address] * (ABNORMAL) CBC with auto differential (04/22/2025 2:31 PM CDT) WBC 4.26 3.80 - 9.90 K/cumm Hgb 11.2(L) 11.9 - 15.5 g/dL [facility] Hct 34.6(L) 35.6 - 45.5 % [facility] Plt 200 150 - 400 K/cumm [facility] MPV 10.0 9.1 - 12.[address] [facility] RBC 3.86(L) 3.90 - 5.20 M/cumm [facility] MCV 89.6 81.3 - 96.[address] [facility] MCH 29.0 27.1 - 33.[address] [facility] MCHC 32.4 32.3 - 35.7 g/dL [facility] RDW CV 12.2 11.1 - 14.9 % [facility] RDW SD 39.8 35.7 - 48.[address] [facility] NRBC abs 0.00 0.00 - 0.01 K/cumm [facility] Blood 04/22/2025 2:31 PM CDT 04/22/2025 4:31 PM CDT Conner Whitmore NP LAB BLOOD ORDERABLES [facility] al Result [facility] [place] [address] * (ABNORMAL) Comprehensive metabolic panel (04/22/2025 2:31 PM CDT) Sodium 133(L) 135 - 145 mmol/L Potassium, pl 4.1 3.3 - 4.9 mmol/L [facility] [facility] Chloride 97 97 - 110 mmol/L [facility] CO2 29 22 - 32 mmol/L [facility] Anion gap 7 2 - 15 mmol/L [facility] BUN 14 6 - 25 mg/dL [facility] Creatinine 0.61 0.60 - 1.10 mg/dL [facility] Glucose 90 70 - 199 mg/dL [facility] Comment: Interpretive Data Fasting glucose >/= 126 mg/dl is diagnostic for diabetes. Fasting is defined as no caloric intake for at least 8 hours. Fasting glucose between 100 mg/dl to 125 mg/dl is diagnostic of prediabetes. In a patient with classic symptoms of hyperglycemia or hyperglycemic crisis, a random glucose >/= 200 mg/dl is diagnostic for diabetes. In the absence of unequivocal hyperglycemia, results should be confirmed by repeat testing. The classification and Diagnosis of Diabetes Diabetes Care 2021; 46: S19-S40. Current interpretive data was last revised 2022. Calcium 9.4 8.5 - 10.3 mg/dL [facility] Bilirubin, total 0.2 0.1 - 1.2 mg/dL [facility] Protein, pl 7.2 6.5 - 8.5 g/dL [facility] Albumin 4.2 3.5 - 5.0 g/dL [facility] Alk phos 93 40 - 130 Units/L [facility] ALT 10 7 - 45 Units/L [facility] AST 18 10 - 45 Units/L [facility] Blood 04/22/2025 2:31 PM CDT 04/22/2025 4:30 PM CDT Boston Cavanaugh MD LAB BLOOD ORDERABLES Final Result Performing Organization Address City/State/[facility] Co de Phone Number [facility] Department [place] [address] * CT Shoulder Left WO Contrast (04/22/2025 11:40 AM CDT) Anatomical Region Laterality Modality Upper Extremities Left Computed Tomog bridgette 04/22/2025 4:08 PM CDT Impressions 04/22/2025 4:20 PM CDT Severe glenohumeral joint osteoarthritis with glenoid retroversion and preserved bone stock. Dictated by: Juan A Castro M.D. The radiology attending physician has personally reviewed this study, and had reviewed and/or edited this written report and agrees with it. Electronically signed by: Shaw Mayfield M.D. Narrative 04/22/2025 4:20 PM CDT EXAMINATION: Computed tomography of the left shoulder without intravenous contrast HISTORY: Left glenohumeral osteoarthritis TECHNIQUE: Transaxial computed tomographic images of the left shoulder were obtained without intravenous contrast according to the standard. COMPARISON: X-ray 03/18/2025 FINDINGS: Severe glenohumeral joint osteoarthritis. Glenoid bone stock measured at the base of the coracoid process measures 25 mm. There is 29 degrees of glenoid retroversion. There is mild fatty infiltration of the rotator cuff muscles without significant atrophy. Moderate glenohumeral joint effusion with intra-articular loose bodies. No acute fracture or dislocation. Mild acromioclavicular joint osteoarthritis. Procedure Note Shaw Mayfield MD - 04/22/2025 EXAMINATION: Computed tomography of the left shoulder without intravenous contrast HISTORY: Left glenohumeral osteoarthritis TECHNIQUE: Transaxial computed tomographic images of the left shoulder were obtained without intravenous contrast according to the standard. COMPARISON: X-ray 03/18/2025 FINDINGS: Severe glenohumeral joint osteoarthritis. Glenoid bone stock measured at the base of the coracoid process measures 25 mm. There is 29 degrees of glenoid retroversion. There is mild fatty infiltration of the rotator cuff muscles without significant atrophy. Moderate glenohumeral joint effusion with intra-articular loose bodies. No acute fracture or dislocation. Mild acromioclavicular joint osteoarthritis. IMPRESSION: Severe glenohumeral joint osteoarthritis with glenoid retroversion and preserved bone stock. Dictated by: Juan A Castro M.D. The radiology attending physician has personally reviewed this study, and had reviewed and/or edited this written report and agrees with it. Electronically signed by: Shaw Mayfield M.D. Boston Cavanaugh MD IMG CT PROCEDURES Final Re sult * XR Shoulder Left 2+ View (03/18/2025 12:54 PM CDT) Anatomical Region Laterality Modality Upper Extremities, Shoulder Left Comp uted Radiography 03/18/2025 2:22 PM CDT Impressions 03/18/2025 2:46 PM CDT Left humeral head osteonecrosis, osteochondral collapse, and severe secondary osteoarthritis. Dictated by: Bear Singleton MD The radiology attending physician has personally reviewed this study, and had reviewed and/or edited this written report and agrees with it. Electronically signed by: Fuentes Banks M.D. Narrative 03/18/2025 2:46 PM CDT EXAMINATION: XR SHOULDER LEFT 2 OR MORE VIEWS HISTORY: Left shoulder pain FINDINGS: 4 views of the left shoulder are submitted for interpretation with comparison is made to radiographs dated 12/10/2024. 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 There is mild left acromioclavicular osteoarthritis. There is no acute fracture or dislocation. Procedure Note Fuentes Banks MD PhD - 03/18/2025 EXAMINATION: XR SHOULDER LEFT 2 OR MORE VIEWS HISTORY: Left shoulder pain FINDINGS: 4 views of the left shoulder are submitted for interpretation with comparison is made to radiographs dated 12/10/2024. 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 There is mild left acromioclavicular osteoarthritis. There is no acute fracture or dislocation. IMPRESSION: Left humeral head osteonecrosis, osteochondral collapse, and severe secondary osteoarthritis. Dictated by: Bear Singleton MD The radiology attending physician has personally reviewed this study, and had reviewed and/or edited this written report and agrees with it. Electronically signed by: Fuentes Banks M.D. Boston Cavanaugh MD IMG XR PROCEDURES Final Re sult from Last [address] [place] [address] [employer] MED[employer] PPO [place] [id number] [employer] PPO Advance Directives For more information, please contact: [phone] * Full Code (Latest Code Status on File) Date Activated Date Inactivated Comments 05/07/2025 5:23 PM 05/08/2025 2:23 PM Care Teams Prime Minister Relationship Specialty Start Date End Date Michel Ramirez MD [address] [place] [address] PCP - General Family Medicine 10/15/24
--- OUTSIDE RECORDS SUMMARY | 2025-05-19 15:45 | XMS_ITS | Clinical Summary ---
Author Organization [facility] Address [address] [place] [address] Care Team Providers Care Criminal Justice Faculty Name Role Phone Michel Ramirez MD Primary Care Provider [phone] Allergies No known active allergies Medications divalproex [...] mouth daily 30 tablet 5 025 Active [id number] 1 mg-1.5 mg- 1.7 mg-50 mg tablet [...] Lymphoma 09/27/2011 Overview (02/28/2018): Description: Malignant Lymphoma Encounters Date Type Department Care Team Description 05/07/2025 1:54 PM CDT Anesthesia Event [facility] Operating Room [address] [place] [address] Samia Hodge MD Richardson, Genea Michelle, NP 05/07/2025 1:10 PM CDT - 05/07/2025 3:40 PM CDT Surgery [facility] Operating Room [address] [place] [address] Boston Cavanaugh MD Left reverse shoulder arthroplasty 05/07/2025 10:33 AM CDT - 05/08/2025 10:17 AM CDT Hospital Encounter [facility] [address] [place] [address] Boston Cavanaugh MD Arthritis of left shoulder (Primary Dx) Discharge Disposition: Discharge to home or self care 05/06/2025 Telephone [facility] Orthopaedic Surgery [address] [place] [address] [facility] [address] [place] [address] [place] [address] Boston Cavanaugh MD 04/22/2025 1:30 PM CDT Pre-Admission Testing [facility] Center for Preoperative Assessment and Planning [facility] [address] [place] [address] Preoperative testing (Primary Dx); Osteoarthritis of left glenohumeral joint 04/22/2025 10:52 AM CDT - 04/22/2025 11:59 PM CDT Hospital Encounter [facility] Radiology [facility] [address] [place] [address] Boston Cavanaugh MD Arthritis of left shoulder Discharge Disposition: Discharge to home or self care 03/19/2025 Orders Only [facility] Orthopaedic Surgery [address] [place] [address] [facility] [address] [place] [address] [place] [address] Boston Cavanaugh MD Arthritis of left shoulder (Primary Dx) 03/18/2025 1:00 PM CDT Office Visit [facility] Orthopaedic Surgery [address] [place] [address] [facility] [address] [place] [address] [place] [address] Boston Cavanaugh MD Arthritis of left shoulder (Primary Dx); Left shoulder pain, unspecified chronicity 03/18/2025 12:48 PM CDT - 03/18/2025 11:59 PM CDT Hospital Encounter [facility] Radiology [facility] [address] [place] [phone] Left shoulder pain, unspecified chronicity Discharge Disposition: Discharge to home or self care from Last 3 Months Family History Medical History Relation Name Comments Anesthesia problems Neg Hx Social History Tobacco Use Types Packs/Day Years [...] on file 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 Gender Identity Not on file Sexual Orientation Not on file Obstetrics History Last Filed Vital Signs Vital Sign Reading [...] 04/22/2025 1:36 PM CDT Plan of Treatment Health Maintenance Due Date Last Done Comments Colon Cancer Screening-Colonoscopy 1950 Depression Screening 1950 Hepatitis C Screening 1950 Osteoporosis Screening-Bone Density Scan 1950 DTaP/Tdap/Td Vaccine (1 - Tdap) 1960 Hepatitis B Screening 1967 Pneumococcal vaccine 65+ (1 of 2 - PCV) 1968 Zoster Vaccine (1 of 2) 1968 Well Visit 65+ 2014 Covid-19 Vaccine (6 - 2023-2 5 season) 2024 08/25/2022, 03/11/2022, 09/21/2021, Additional history exists Influenza Vaccine (#1) 2025 , 09/10/2023, 10/17/2022, Additional history exists Fall Risk Assessment 05/08/2026 05/08/2025 Medical Devices Implanted Type Area Dictionary Editor Device Identifier Shelf Expiration Date Model / Serial / Lot [employer] Screw Glenoid Locking Reverse Aequalis Perform 5.0x22mm Titanium [id number] - [id number] Implanted:Qty: 1 on 05/07/2025 by Boston Cavanaugh MD at [facility] Screw Left: Shoulder [employer] [id number] / / [employer] Aequalis Perform Reversed 5mm 18mm Peripheral Glenoid Screw [id number] - [id number] Implanted:Qty: 1 on 05/07/2025 by Boston Cavanaugh MD at [facility] Screw Left: Shoulder [employer] [id number] / / [employer] Aequalis Perform Reversed 5mm 38mm Peripheral Glenoid Screw [id number] - [id number] Implanted:Qty: 1 on 05/07/2025 by Boston Cavanaugh MD at [facility] Screw Left: Shoulder [employer] [id number] / / [employer] Implant Screw Central Glenoid Locking Reverse Tornier Perform 6.5x25mm Titanium [id number] - [id number] Implanted:Qty: 1 on 05/07/2025 by Boston Cavanaugh MD at [facility] Screw Left: Shoulder [employer] [id number] / / Knee Replacement Bilateral: Knee Gup[employer]up Baseplate Glenoid Reverse Aequalis Perform 25mm [id number] - [id number] - [id number] Implanted:Qty: 1 on 05/07/2025 by Boston Cavanaugh MD at [facility] Left: Shoulder [employer] 02/18/2030 [id number] / [id number] / [employer] Glenosphere Reverse Shoulder Cannulated Eccentric +3mm Inferior Offset Austin Chromium Tornier Perform 39mm [id number] - [id number] - [id number] Implanted:Qty: 1 on 05/07/2025 by Boston Cavanaugh MD at [facility] [employer] [id number] 10/19/2028 [id number] / [id number] / GupShup Insert Perform 10 Deg Ret Ve [id number] - [id number] - [id number] Implanted:Qty: 1 on 05/07/2025 by Boston Cavanaugh MD at [facility] Left: Shoulder [employer] [id number] 11/18/2025 [id number] / [id number] / [employer]up Tray Stem Humeral Shoulder Reverse Long Tornier Perform [id number] [id number] - [id number] - [id number] Implanted:Qty: 1 on 05/07/2025 by Boston Cavanaugh MD at [facility] Left: Shoulder [employer] 02/16/2030 [id number] / [id number] / [employer] Spacer Humeral Reverse Size 3/4 +9 Perform [id number] - [id number] - [id number] Implanted:Qty: 1 on 05/07/2025 by Boston Cavanaugh MD at [facility] Left: Shoulder [employer] 09/22/2029 [id number] / [id number] / Procedures Procedure Name Priority Date/Time Associated [...] PM CDT Osteoarthritis of left glenohumeral joint [place] AN PROCEDURE PLACEHOLDER Routine 05/07/2025 12:54 PM CDT [place] AN PROCEDURE PLACEHOLDER Routine 05/07/2025 12:54 PM [...] Results * eGFR (05/07/2025 11:24 PM CDT) Pathologist [facility] eGFR >90 >=60 mL/min/1. 73 m2 Comment: [...] 4 PM CDT 05/07/2025 11:57 PM CDT Boston Cavanaugh MD LAB BLOOD ORDERABLES Final Result Performing Organization Address City/[facility]/ZIP Co de Phone Number [facility] Department [place] [address] * (ABNORMAL) Hemoglobin and hematocrit (05/07/2025 11:24 PM CDT) Hgb 10.3(L) 11.9 - 15.5 g/dL Hct 30.8(L) 35.6 - 45.5 % [facility] Blood 05/07/2025 11:2 4 PM CDT 05/07/2025 11:58 PM CDT Narrative [facility] - 05/08/2025 12:09 AM CDT change to CBC when needed Boston Cavanaugh MD LAB BLOOD ORDERABLES Final Result [facility] Department [place] [address] * (ABNORMAL) Basic metabolic panel (05/07/2025 11:24 PM CDT) Sodium 136 135 - 145 mmol/L Potassium, pl 4.5 3.3 - 4.9 mmol/L [facility] Chloride 99 97 - 110 mmol/L [facility] CO2 28 22 - 32 mmol/L [facility] Anion gap 9 2 - 15 mmol/L [facility] BUN 14 6 - 25 mg/dL [facility] Creatinine 0.59(L) 0.60 - 1.10 mg/dL [facility] Glucose 129 70 - 199 mg/dL [facility] Comment: Interpretive Data Fasting glucose [...] 2022. Calcium 9.2 8.5 - 10.3 mg/dL [facility] Blood 05/07/2025 11:2 4 PM CDT 05/07/2025 11:57 PM CDT Narrative [facility] - 05/08/2025 12:29 AM CDT Daily us Boston Cavanaugh MD LAB BLOOD ORDERABLES Final Result Performing Organization Address City/State/[facility] Co de Phone Number [facility] Department [place] [address] * XR Shoulder Left 2+ View (05/07/2025 [...] position. Electronically signed by: Alexsander Riley M.D. us Boston Cavanaugh MD IMG XR PROCEDURES Final [...] MD ANESTHESIA ORDERABLES Final Re sult * [place] AN PROCEDURE PLACEHOLDER (05/07/2025 12:54 PM CDT) [...] patient tolerated procedure well with no complications us Saurabh Riley MD ANESTHESIA ORDERABLES Fi nal Result * [place] AN PROCEDURE PLACEHOLDER (05/07/2025 12:54 PM CDT) [...] Result * eGFR (04/22/2025 2:31 PM CDT) eGFR >90 >=60 mL/min/1. 73 [...] Inclusion of Race in Diagnosing Kidney Disease, DERICKSKunal 2020). The CKD-EPI equation should not be used for patients with unstable renal function and has not been validated in children and those over 70. Current interpretive data was last reviewed 2021. Blood 04/22/2025 2:31 PM CDT 04/22/2025 4:30 PM CDT us Boston Cavanaugh MD LAB BLOOD ORDERABLES Final Result [facility] Department [place] [address] * Differential, auto (04/22/2025 2:31 PM CDT) Neutrophil abs 2.73 1.50 - 6.50 K/cumm Imm gran abs 0.01 0.00 - 0.10 K/cumm [facility] Lymphocyte abs 0.94 0.80 - 3.30 K/cumm [facility] Monocyte abs 0.45 0.20 - 0.80 K/cumm [facility] Eosinophil abs 0.12 0.00 - 0.50 K/cumm [facility] Basophil abs 0.01 0.00 - 0.10 K/cumm [facility] Neutrophil pct 64.1 % [facility] Comment: Interpretive Data Percent cell count reference ranges are not reported, since discordance with absolute values may lead to misinterpretation of CBC data. Current Interpretive Data was last revised on 2018. Imm gran pct 0.2 % [facility] Comment: Interpretive Data Percent cell count reference ranges are not reported, since discordance with absolute values may lead to misinterpretation of CBC data. Current Interpretive Data was last revised on 2018. Lymphocyte pct 22.1 % [facility] Comment: Interpretive Data Percent cell count reference ranges are not reported, since discordance with absolute values may lead to misinterpretation of CBC data. Current Interpretive Data was last revised on 2018. Monocyte pct 10.6 % [facility] Comment: Interpretive Data Percent cell count reference ranges are not reported, since discordance with absolute values may lead to misinterpretation of CBC data. Current Interpretive Data was last revised on 2018. Eosinophil pct 2.8 % [facility] Comment: Interpretive Data Percent cell count reference ranges are not reported, since discordance with absolute values may lead to misinterpretation of CBC data. Current Interpretive Data was last revised on 2018. Basophil pct 0.2 % [facility] Comment: Interpretive Data Percent cell count reference ranges are not reported, since discordance with absolute values may lead to misinterpretation of CBC data. Current Interpretive Data was last revised on 2018. Blood 04/22/2025 2:31 PM CDT 04/22/2025 4:31 PM CDT Conner Whitmore MACHINE STRAP BUCKLER LAB BLOOD ORDERABLES Fin al Result Performing Organization Address [facility] Co de Phone Number [facility] Department [place] [address] * (ABNORMAL) CBC with auto differential (04/22/2025 2:31 PM CDT) WBC 4.26 3.80 - 9.90 K/cumm Hgb 11.2(L) 11.9 - 15.5 g/dL [facility] Hct 34.6(L) 35.6 - 45.5 % [facility] Plt 200 150 - 400 K/cumm [facility] MPV 10.0 9.1 - 12.3 fL [facility] RBC 3.86(L) 3.90 - 5.20 M/cumm [facility] MCV 89.6 81.3 - 96.4 fL [facility] MCH 29.0 27.1 - 33.3 pg [facility] MCHC 32.4 32.3 - 35.7 g/dL [facility] RDW CV 12.2 11.1 - 14.9 % [facility] RDW SD 39.8 35.7 - 48.1 fL [facility] NRBC abs 0.00 0.00 - 0.01 K/cumm [facility] Blood 04/22/2025 2:31 PM CDT 04/22/2025 4:31 PM CDT Conner Whitmore NP LAB BLOOD ORDERABLES Fin al Result Performing Organization Address [facility]/ZIP Co de Phone Number [facility] Department [place] [address] * (ABNORMAL) Comprehensive metabolic panel (04/22/2025 2:31 PM CDT) Sodium 133(L) 135 - 145 mmol/L Potassium, pl 4.1 3.3 - 4.9 mmol/L [facility] Chloride 97 97 - 110 mmol/L [facility] CO2 29 22 - 32 mmol/L [facility] Anion gap 7 2 - 15 mmol/L [facility] BUN 14 6 - 25 mg/dL [facility] Creatinine 0.61 0.60 - 1.10 mg/dL [facility] Glucose 90 70 - 199 mg/dL [facility] Comment: Interpretive Data Fasting glucose [...] 2022. Calcium 9.4 8.5 - 10.3 mg/dL [facility] Bilirubin, total 0.2 0.1 - 1.2 mg/dL [facility] Protein, pl 7.2 6.5 - 8.5 g/dL [facility] Albumin 4.2 3.5 - 5.0 g/dL [facility] Alk phos 93 40 - 130 Units/L [facility] ALT 10 7 - 45 Units/L [facility] AST 18 10 - 45 Units/L [facility] Blood 04/22/2025 2:31 PM CDT 04/22/2025 4:30 PM CDT us Boston Cavanaugh MD LAB BLOOD ORDERABLES Final Result [facility] Department [place] [address] * CT Shoulder Left WO Contrast (04/22/2025 [...] Re sult from Last 3 Months Insurance [employer] [place] [address] [place] [address] [employer] PPO Advance Directives For more information, please contact: [phone] * Full Code (Latest Code Status on File) Date Activated Date Inactivated Comments 05/07/2025 5:23 PM 05/08/2025 2:23 PM Care Teams Criminal Justice Faculty Relationship Specialty Start Date End Date Michel Ramirez MD [address] [address] [facility] [address] [place] [address] PCP - General Family Medicine 10/15/24
--- OUTSIDE RECORDS SUMMARY | 2025-05-19 15:45 | XMS_ITS ---
Author Organization [facility] Address [address] [place] [address] Care Team Providers Care Driver Guide Name Role Phone Michel Ramirez MD Primary Care Provider [phone] Active Problems Problem Noted Date Diagnosed Date Arthritis of left shoulder 05/07/2025 Osteoarthritis of left glenohumeral joint 2024 Lymphoma 09/27/2011 Overview (02/28/2018): Description: Malignant Lymphoma Current Treatment and Therapy Plans No current plan information found. Past Treatment and Therapy Plans No past plan information found. Lifetime Dose Tracking * Chemical Lifetime Dose Automatic Entry Manual Entr y DLP 189 mGycm 189 mGycm 0 mGycm
--- OUTSIDE RECORDS SUMMARY | 2025-05-19 15:45 | XMS_ITS | Continuity of Care Document ---
Author Organization [facility] Address [address] [place] [address] Phone Care Team Providers Care Supervisor Curing Room Name Role Phone Karol Aguirre Unavailable Unavailable Advance Directives Directive Yes / No Effective Date File Name No Information Encounters Encounter Description Practice Location Reason(s) For Visit Diagnoses Date Provider Providers Copied on Encounter [facility], [address], [place], [place], [id number], [place] tel:[phone] [facility] No Information Dec-0 1-200 5 Carla Roberson. [address] [facility] , [address], [place], [address], [place]. tel:[phone] Family History Family Member Type Diagnosis Age At Onset No Information Payers Payer name Insurance type Covered libertarian ID Authoriza tion(s) No Information Social History Type Description Quantity Date Captured Comments Sex Female Smoking Status No Information Chief Complaint And Reason For Visit No Information Reason For Referral Reason For Referral No Information History Of Present Illness Encounter Date Complaint History Of Prese nt Illness No Information Functional Status Date Functional Assessmen t No Information Instructions Date Instruction Additional Infor mation No Information Assessments Type Assessment Date No Information Patient Care Teams Name Effective Dates (start - stop) Status Members No Information
--- NOTE | 2025-05-19 15:58 | CY_PTH ---
PATIENT: Saniya Mancera LOC: [facility] U#:[id number] AGE/SX: 74/F ROOM: RE05/19/[address]: Jose Andrews MD : 1950 BED: DIS: 05/19/2025 SPEC #: [id number] RECD: 05/20/25 07:18 STATUS: LENCHO REQ #: [id number] KOBI: 05/19/25 15:[address]: Jose Andrews DEPT: [facility] Cytology RECD BY: Scooby Dsouza ENTERED: 05/20/25 07:20 SP TYPE: Cytology OTHR DR: Michel Ramirez MD Tissues: A - Peripheral Blood Procedures: Flow Cytometry
[2025-05-19 16:00] LABS: Hematocrit 30.0 % (37.0-47.0); Hemoglobin 9.6 g/dL (12.0-15.0); Immature Granulocyte Percent A 0.7 % (0-0.5); Lymphocytes Absolute Auto 0.86 K/mm3 (0.9-3.2); Mean Corpuscular HGB Conc 32.0 g/dl (32-36); Mean Corpuscular Hemoglobin 29.5 pg (26-34); Mean Corpuscular Volume 92.3 fl (80-100); Nucleated Red Blood Cells Absolute Auto 0.000 K/mm3 (0.0-0.012); Nucleated Red Blood Cells Perc 0.0 % (0.0-0.2); Platelet Count Result 288 k/mm3 (150-375); Red Blood Count 3.25 M/mm3 (4.2-5.4); White Blood Count 4.3 K/mm3 (4.5-10.0)
[2025-05-19 16:31] LABS: Alanine Aminotransferase 11 U/L (6-35); Albumin Level 4.0 g/dL (3.5-5.1); Alkaline Phosphatase 115 U/L (38-126); Anion Gap 10 mmol/L (4-12); Aspartate Amino Transferase 22 U/L (14-36); Bilirubin,Total 0.3 mg/dL (0.2-1.3); Blood Urea Nitrogen 11 mg/dL (7-17); Calcium 9.4 mg/dL (8.4-10.2); Carbon Dioxide 25 mmol/L (22-30); Chloride 99 mmol/L (98-107); Estimated Glomerular Filt Rate > 60; Glucose 104 mg/dL (65-110); Potassium 4.0 mmol/L (3.4-5.0); Sodium 134 mmol/L (137-145); Total Protein 7.3 g/dL (6.3-8.2)
[2025-05-19 16:41] LABS: Iron 59 ug/dL (37-170)
[2025-05-19 16:50] LABS: Percent Iron Saturation 29 % (20-50)
[2025-05-19 17:19] LABS: Ferritin 187.00 ng/mL (11.1-264)
[2025-05-19 17:53] LABS: Vitamin B12. > 1000.0 pg/mL (239-931)
== END 2025-05-19 15:42 | disposition home or self-care (01) ==
LOC: ANHLAB 15:43
PROVIDERS: PCP Family Medicine; Visit Provider Internal Medicine Hematology & Oncology
DX: D72.819 Decreased white blood cell count, unspecified (principal); D64.9 Anemia, unspecified
CPT/HCPCS: 36415; 80053; 82607; 82728; 82746; 83540; 83550; 85025; 86038; 86039; 88184

== ENCOUNTER 2025-06-19 07:09 | Outpatient (CLI) | payer MEDICARE, SELFPAY ==
--- NOTE | ~2025-06-19 | US_ITS ---
EXAMINATION: US abdomen complete DATE: 06/19/2025 08:02 INDICATION: Leukopenia TECHNIQUE: Multiple grayscale and Doppler ultrasound images of the abdomen were obtained. COMPARISON: None FINDINGS: Pancreas is normal. Abdominal aorta is normal measuring 2.6 mm in AP diameter proximally, 2.3 cm in t he mid aorta tapering to 1.9 cm at the distal aorta. Inferior vena cava is normal. Liver has normal e chogenicity and contour, with a smooth surface. No liver lesion identified. No intrahepatic biliary d uct dilation suspected. Portal venous flow was seen in the hepatopetal, normal direction and has norm al Doppler waveform. There is also normal directional hepatofugal flow in the hepatic veins at their confluence with the inferior vena cava. The gallbladder is normal in appearance. There is no choleli thiasis. The common bile duct measures 4 mm, which is normal. Sonographic Liu sign was reported as negative by the brick veneer maker. Spleen is normal measuring 9.0 cm in length. There is normal renal cont our and echogenicity bilaterally. The right kidney measures 9.8 x 4.5 x 5.6 cm and the left 10.7 x 5. 1 x 5.5 cm. Anechoic cysts at both kidneys raising up to 3.9 cm at the lower pole of the right kidney and 2.8 cm the mid left kidney. There is no hydronephrosis. IMPRESSION: 1. Bilateral renal cysts. Otherwise normal abdominal ultrasound including a normal spleen measuring 1 0.0 cm in length. Reviewed, dictated and finalized at location A. IMPRESSION: 1. Bilateral renal cysts. Otherwise normal abdominal ultrasound including a nor mal spleen measuring 10.0 cm in length.
--- OUTSIDE RECORDS SUMMARY | 2025-06-19 07:13 | XMS_ITS | Clinical Summary ---
Author Organization [facility] Address [address] [place] [address] Care Team Providers Care Child Life Therapist Name Role Phone Unavailable Primary Care Provider Unavailabl e Allergies No known active allergies Medications phenytoin sodium (DILANTIN) 100 mg extended release capsule Take 200 mg by mouth 2 times daily. Active lamoTRIgine (LaMICtal) 200 mg tablet Take 200 mg by mouth 2 times daily. 5 Active divalproex (DEPAKOTE) 250 mg Delayed Release tablet Take 250 mg by mouth 2 times daily. Active methylPREDNISo lone (MEDROL DOSPACK) 4 mg Tablets, Dose Pack Take 4 mg by mouth see administration instructions. Active folic acid (FOLVITE) 1 mg tablet Take 1 mg by mouth. 5 Active polycarbophil calcium (FIBERCON) 625 mg tablet Take 625 mg by mouth daily. Active olmesartan (BENICAR) 40 mg tablet Take 40 mg by mouth. 5 Active meloxicam (MOBIC) 15 mg tablet Take 15 mg by mouth. 5 Active acetaminophen (TYLENOL ARTHRITIS) 650 mg Extended Release tablet Take 1,300 mg by mouth. Active vit C-vit I-oikqrf-fqqf OXIDE-lutein (PRESERVISION) 226-90-0.8-5 mg Capsule Take 1 Capsule by mouth daily. Active cyanocobalamin 1,000 mcg Tablet Take 1,000 mcg by mouth daily. Active Active Problems No known active problems Encounters Date Type Department Care Team Description 06/03/2025 External Device Data ST[facility] ABSTRACTION Provider, Abstract 06/02/2025 External Device Data [facility] ABSTRACTION Provider, Abstract 05/26/2025 External Device Data [facility] ABSTRACTION Provider, Abstract 05/26/2025 External Device Data [facility] ABSTRACTION Provider, Abstract 05/26/2025 External Device Data [facility] ABSTRACTION Provider, Abstract 05/20/2025 Orders Only [facility] [place] [address] [place] [address] Jose Andrews MD 05/20/2025 Abstract [facility] [place] [address] [place] [id number] Jose Andrews MD 05/19/2025 3:00 PM CDT Office Visit [facility] [place] [address] [place] [id number] Jose Andrews MD Leukopenia, unspecified type (Primary Dx); Chronic anemia from Last 3 Months Family History Medical History Relation Name Comments No Known Problems Brother No Known Problems Child 1 No Known Problems Child 2 Heart Disease Father Liver Cancer Mother Rectal Cancer Mother No Known Problems Sister 1 No Known Problems Sister 2 Relation Name Status Comments Brother Child 1 Alive Child 2 Alive Father Mother Sister 1 Alive Sister 2 Social History Tobacco Use Types Packs/Day Years Used Date Smoking Tobacco: Never Smokeless Tobacco: Never Alcohol Use Standard Drinks/Week Comments Never 0 (1 standard drink = 0.6 oz pur e alcohol) Comments Unknown Sex and Gender Information Value Date Recorded Sex Assigned at Not on file Legal Sex Female 10:24 PM CDT Gender Identity Not on file Sexual Orientation Not on file Last Filed Vital Signs Vital Sign Reading Time Taken Comments Blood Pressure 148/83 05/19/2025 2:52 PM CDT Pulse 80 05/19/2025 2:48 PM CDT Temperature 36.4 C (97.6 F) 05/19/2025 2:48 PM CDT Respiratory Rate 15 05/19/2025 2:48 PM CDT Oxygen Saturation 97% 05/19/2025 2:48 PM CDT Inhaled Oxygen Concentration - - Weight 76.5 kg (168 lb 9.6 oz) 05/19/2025 2:48 P M CDT Height 160 cm (5' 3) 05/19/2025 2:48 PM CDT Body Mass Index 29.87 05/19/2025 2:48 PM CDT Plan of Treatment Upcoming Encounters Date Type Department Care Team (Late st Contact Info) Description 06/24/2025 4:30 PM CDT Telephone Check Up [facility] H[facility]ology - [place] [address] [facility] [address] [place] [address] Jose Andrews MD [address] [place] [address] Health Maintenance Due Date Last Done Comments DTAP/TDAP/TD VACCINES (1 - Tdap) 1968 COLORECTAL SCREENING 1994 Colorectal Cancer Screening 1994 FIT-DNA Q 3 years 1994 FIT/FOBT Q 1 year 1994 Flex Sig/CT Colonography Q 5 years 1994 PNEUMOCOCCAL VACCINE 50+ YEA RS (1 of 1 - PCV) 1999 ZOSTER VACCINE (1 of 2) 1999 RSV VACCINE (60+ or ) (1 - 1-dose 75+ series) 2024 INFLUENZA VACCINE (#1) 2025 OSTEOPOROSIS SCREENING 11/01/2026 11/01/2021, 2020 Procedures Procedure Name Priority Date/Time Associated Diagnosis Comments COMPREHENSIVE METABOLIC PANEL Routine 05/19/2025 10:36 AM CDT DEXA SCAN Routine 11/01/2021 from Last 3 Months or Most Recently Relevant to Health Maintenance Results * COMPREHENSIVE METABOLIC PANEL (05/19/2025 10:36 AM CDT) Blood us Jose Andrews MD CHEMISTRY ORDERABLES Final Resu lt * HM DEXA SCAN (11/01/2021) T-SCORE FEMUR NECK [facility] [place] [address] T-SCORE FEMORAL NECK (LEFT) [facility] [place] [address] T-SCORE FEMORAL NECK (RIGHT) [facility] [place] [address] T-SCORE FEMUR [facility] [place] [address] T-SCORE FEMUR (LEFT) [facility] [place] [address] T-SCORE FEMUR (RIGHT) [facility] [place] [address] T-SCORE HEEL [facility] [place] I [address] T-SCORE HEEL (LEFT) [facility] [place] [address] T-SCORE HEEL (RIGHT) [facility] [place] [address] T-SCORE HIP [facility] T-SCORE HIP (LEFT) [facility] [place] [address] T-SCORE HIP (RIGHT) [facility] [place] [address] T-SCORE [facility]ST [facility] [address] T-SCORE WRIST (LEFT) [facility] [place] [address] T-SCORE WRIST (RIGHT) [facility] [place] [address] us Abstract Provider HEALTH MAINTENANCE Final Resul t [facility] CLIA #:[id number] [place] [address], from Last 3 Months or Most Recently Relevant to [place] [address] [facility]
--- OUTSIDE RECORDS SUMMARY | 2025-06-19 07:13 | XMS_ITS | Continuity of Care Document ---
Author Organization [facility] Address [address] [place] [address] Phone Care Team Providers Care Coding Quality Analyst Name Role Phone Karol Aguirre Unavailable Unavailable Advance Directives Directive Yes / No Effective Date File Name No Information Encounters Encounter Description Practice Location Reason(s) For Visit Diagnoses Date Provider Providers Copied on Encounter [facility], [address], [place], [place], [id number], [place] tel:[phone] [facility] No Information Dec-0 1-200 5 Carla Roberson. [address] , [address], [place], [address], [place]. tel:[phone] Family History Family Member Type Diagnosis Age At Onset No Information Payers Payer name Insurance type Covered constitution party ID Authoriza tion(s) No Information Social History [...]
--- OUTSIDE RECORDS SUMMARY | 2025-06-19 07:13 | XMS_ITS ---
Author Organization [facility] Address [address] [place] [phone] Care Team Providers Care Rf Manager Name Role Phone Michel Ramirez MD Primary Care Provider [phone] Active Problems Problem Noted Date Diagnosed Date [...]
--- OUTSIDE RECORDS SUMMARY | 2025-06-19 07:13 | XMS_ITS | Referral Summary ---
Author Organization [facility] Address [address] [place] [id number] Care Team Providers Care German Teacher Name Role Phone Michel Ramirez MD Primary Care Provider [phone] Encounters Date Type Department Care Team Description 05/25/2025 Documentation [facility] Orthopaedic Surgery [address] [place] [address] [facility] 12th [place] [address] [place] [address] Boston Cavanaugh MD 05/20/2025 1:45 PM CDT - 05/20/2025 11:59 PM CDT Hospital Encounter [facility] [address] [place] [address] Status post reverse total arthroplasty of left shoulder Discharge Disposition: Discharge to home or self care 05/20/2025 2:00 PM CDT Office Visit [facility] Orthopaedic Surgery [address] [place] [address] [facility] [address]th [place] [address] [place] [address] Boston Cavanaugh MD Status post reverse total arthroplasty of left shoulder (Primary Dx) 05/07/2025 10:33 AM CDT - 05/08/2025 10:17 AM CDT Hospital Encounter [facility] 1 [place] [address] Boston Cavanaugh MD Arthritis of left shoulder (Primary Dx) Discharge Disposition: Discharge to home or self care 05/07/2025 1:10 PM CDT - 05/07/2025 3:40 PM CDT Surgery [facility] Operating Room [address] [place] [address] Boston Cavanaugh MD Left reverse shoulder arthroplasty 05/07/2025 1:54 PM CDT Anesthesia Event [facility] Operating Room [address] [place] [address] Samia Hodge MD Richardson, Genea Michelle, NP 05/06/2025 Telephone [facility] Orthopaedic Surgery [address] [place] [address] [facility] [address]th [place] [address] [place] [address] Boston Cavanaugh MD 04/22/2025 10:52 AM CDT - 04/22/2025 11:59 PM CDT Hospital Encounter [facility] ([facility]) [address] [place] [id number] Boston Cavanaugh MD Arthritis of left shoulder Discharge Disposition: Discharge to home or self care 04/22/2025 1:30 PM CDT Pre-Admission Testing [facility] Center for Preoperative Assessment and Planning [facility] ([facility]) [address] [place] [address] Preoperative testing (Primary Dx); Osteoarthritis of left glenohumeral joint 03/19/2025 Orders Only [facility] Orthopaedic Surgery [address] [place] [address] [facility] [address]th [place] [address] [place] [address] Boston Cavanaugh MD Arthritis of left shoulder (Primary Dx) from Last 3 Months Allergies No known active allergies Medications divalproex DR (DEPAKOTE) 250 mg EC tabletIndication s:epilepsy,Last seizure 10/25/2019 Take 1 tablet (250 mg total) by mouth 2 (two) times a day Active folic acid (FOLVITE) 1 mg tabletIndication s:Folate Deficiency Take 1 tablet (1 mg total) by mouth every morning 5 Active lamoTRIgine (LaMICtal) 200 mg tabletIndication s:Seizures Take 1 tablet (200 mg total) by mouth 2 (two) times a day 5 Active olmesartan (BENICAR) 40 mg tabletIndication s:hypertension Take 1 tablet (40 mg total) by mouth every morning 5 Active phenytoin ER (DILANTIN) 100 mg ER capsuleIndicatio ns:Complex-Parti al Epilepsy Take 2 capsules (200 mg total) by mouth 2 (two) times a day Active meloxicam (MOBIC) 15 mg tabletIndication s:Osteoarthritis Take 1 tablet (15 mg total) by mouth every morning 5 Active acetaminophen ER (TYLENOL) 650 mg 8 hr tabletIndication s:Pain Take 2 tablets (1,300 mg total) by mouth every 8 (eight) hours as needed for pain Active polycarbophil (FIBERCON) 625 mg tabletIndication s:constipation Take 1 tablet (625 mg total) by mouth every morning Active cyanocobalamin (Vitamin B-12) 1,000 mcg tabletIndication s:Prevention of Vitamin B12 Deficiency Take 1 tablet (1,000 mcg total) by mouth every morning Active vit A/vit C/vit E/zinc/copper (PRESERVISION AREDS ORAL)Indications :Eye health Take 2 tablets by mouth nightly Active white petrolatum-automobile insurance claim examiner al oil (Artificial Tears, donell/min,) ointmentIndicati ons:Dry eyes Apply 1 Application to both eyes nightly Pure and clean for dry eyes Active oxyCODONE (ROXICODONE) 5 mg immediate release tabletIndication s:Pain Take 1 tablet (5 mg total) by mouth every 4 (four) hours as needed for pain 20 tablet 5 Active aspirin 81 mg enteric coated tabletIndication s:Deep Vein Thrombosis Prevention Take 1 tablet (81 mg total) by mouth 2 (two) times a day for 14 days 28 tablet 5 Active docusate sodium (COLACE) 100 mg capsuleIndicatio ns:constipation Take 1 capsule (100 mg total) by mouth 2 (two) times a day 30 capsule [address] (PROTONIX) 20 mg EC tabletIndication s:Stress Ulcer Prophylaxis Take 1 tablet (20 mg total) by mouth daily 30 tablet 5 Active Active Problems Problem Noted Date Diagnosed Date [...] on file 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 Gender Identity Not on file Sexual Orientation [...] on file Medical Devices Implanted Type Area Cost And Risk Analysis Manager Device Identifier Shelf Expiration Date Model / Serial / Lot MediaV Screw Glenoid Locking Reverse Aequalis Perform 5.0x22mm Titanium [id number] - [id number] Implanted:Qty: 1 on 05/07/2025 by Boston Cavanaugh MD at [facility] Screw Left: Shoulder Bit [employer] [id number] / / MediaV Aequalis Perform Reversed 5mm 18mm Peripheral Glenoid Screw [id number] - [id number] Implanted:Qty: 1 on 05/07/2025 by Boston Cavanaugh MD at [facility] Screw Left: Shoulder [employer] [id number] / / [employer] Aequalis Perform Reversed 5mm 38mm Peripheral Glenoid Screw [id number] - [id number] Implanted:Qty: 1 on 05/07/2025 by Boston Cavanaugh MD at [facility] Screw Left: Shoulder [employer] [id number] / / [employer] Implant Screw Central Glenoid Locking Reverse Tornier Perform 6.5x25mm Titanium [id number] - [id number] Implanted:Qty: 1 on 05/07/2025 by Boston Cavanaugh MD at [facility] Screw Left: Shoulder Bit [employer] [id number] / / Knee Replacement Bilateral: Knee MediaV Baseplate Glenoid Reverse Aequalis Perform 25mm [id number] - [id number] - [id number] Implanted:Qty: 1 on 05/07/2025 by Boston Cavanaugh MD at [facility] Left: Shoulder [employer] 02/18/2030 [id number] / [id number] / [employer] Glenosphere Reverse Shoulder Cannulated Eccentric +3mm Inferior Offset [place] Chromium Tornier Perform 39mm [id number] - [id number] - [id number] Implanted:Qty: 1 on 05/07/2025 by Boston Cavanaugh MD at [facility] [employer] [id number] 10/19/2028 [id number] / [id number] / [employer] Insert Perform 10 Deg Ret Ve [id number] - [id number] - [id number] Implanted:Qty: 1 on 05/07/2025 by Boston Cavanaugh MD at [facility] Left: Shoulder [employer] [id number] 11/18/2025 [id number] / [id number] / [employer] Tray Stem Humeral Shoulder Reverse Long Tornier Perform [id number] - [id number] - [id number] Implanted:Qty: 1 on 05/07/2025 by Boston Cavanaugh MD at [facility] Left: Shoulder Bit [employer] 02/16/2030 [id number] / [id number] / [employer] Spacer Humeral Reverse Size 3/4 +9 Perform [id number] - [id number] - [id number] Implanted:Qty: 1 on 05/07/2025 by Boston Cavanaugh MD at [facility] Left: Shoulder Bit [employer] 09/22/2029 [id number] / [id number] / Procedures Procedure Name Priority Date/Time Associated Diagnosis Comments XR SHOULDER LEFT 2 OR MORE VIEWS Schedule Routine, Read Routine (OP Routine) 05/20/2025 1:59 PM CDT Status post reverse total arthroplasty of left shoulder EGFR Timed 05/07/2025 11:24 PM CDT HEMOGLOBIN AND HEMATOCRIT Timed 05/07/2025 11:24 PM CDT BASIC METABOLIC PANEL Timed 05/07/2025 11:24 PM CDT XR SHOULDER LEFT 2 OR MORE VIEWS IP Routine 05/07/2025 4:32 PM CDT ANESTHESIA INTUBATION Routine 05/07/2025 2:18 PM CDT ARTHROPLASTY SHOULDER - REVERSE TOTAL 05/07/2025 1:54 PM CDT Osteoarthritis of left glenohumeral joint [place] AN PROCEDURE PLACEHOLDER Routine 05/07/2025 12:54 PM CDT [place] AN PROCEDURE PLACEHOLDER Routine 05/07/2025 12:54 PM [...] 11:40 AM CDT Arthritis of left shoulder from Last 3 Months Results * XR Shoulder Left 2+ View (05/20/2025 1:59 PM CDT) Anatomical Region Laterality Modality Upper Extremities, Shoulder Left Comp uted Radiography 05/20/2025 2:11 PM CDT Impressions 05/20/2025 2:11 PM CDT Reverse kpkp-ewc-wepdop left total shoulder arthroplasty in near-anatomic position. Electronically signed by: Fuentes Banks M.D. Narrative 05/20/2025 2:11 PM CDT EXAMINATION: XR SHOULDER LEFT 2 OR MORE VIEWS HISTORY: Shoulder osteoarthritis FINDINGS: 4 views of the left shoulder were performed with comparison made to 05/07/2025. There is a reverse xjgl-wip-gdgvls left total shoulder arthroplasty in near-anatomic position. There is no periprosthetic lucency or fracture. Procedure Note Fuentes Banks MD PhD - 05/20/2025 EXAMINATION: XR SHOULDER LEFT 2 OR MORE VIEWS HISTORY: Shoulder osteoarthritis FINDINGS: 4 views of the left shoulder were performed with comparison made to 05/07/2025. There is a reverse wera-emm-zdrdrr left total shoulder arthroplasty in near-anatomic position. There is no periprosthetic lucency or fracture. IMPRESSION: Reverse ypdq-vcb-qewbte left total shoulder arthroplasty in near-anatomic position. Electronically signed by: Fuentes Banks M.D. Boston Cavanaugh MD IMG XR PROCEDURES Final Re sult * eGFR (05/07/2025 11:24 PM CDT) eGFR [...] Cavanaugh MD LAB BLOOD ORDERABLES Final Result [facility] Department [place] [address] * (ABNORMAL) Hemoglobin and hematocrit (05/07/2025 11:24 PM CDT) Pathologist [facility] Hgb 10.3(L) 11.9 - 15.5 g/dL Hct 30.8(L) 35.6 - 45.5 % [facility] Blood 05/07/2025 11:2 4 PM CDT 05/07/2025 11:58 PM CDT N[facility]ative [facility] - 05/08/2025 12:09 AM CDT change to CBC when needed Boston Cavanaugh MD LAB BLOOD ORDERABLES Final Result [facility] Department [place] [address] * (ABNORMAL) Basic metabolic panel (05/07/2025 11:24 PM CDT) Sodium 136 135 - 145 mmol/L Potassium, pl 4.5 3.3 - 4.9 mmol/L [facility] Chloride 99 97 - 110 mmol/L [facility] CO2 28 22 - 32 mmol/L [facility] Anion gap 9 2 - 15 mmol/L [facility] BUN 14 6 - 25 mg/dL [facility] Creatinine 0.59(L) 0.60 - 1.10 mg/dL [facility] Glucose 129 70 - 199 mg/dL [facility] Comment: Interpretive Data Fasting glucose >/= 126 [...] 2022. Calcium 9.2 8.5 - 10.3 mg/dL [facility] Blood 05/07/2025 11:2 4 PM CDT 05/07/2025 11:57 PM CDT Narrative [facility] - 05/08/2025 12:29 AM CDT Daily us Boston Cavanaugh MD LAB BLOOD ORDERABLES Final Result [facility] Department [place] [address] * XR Shoulder Left 2+ View (05/07/2025 [...] with: silk tape Number of attempts: 1 Samia Hodge MD ANESTHESIA ORDERABLES Final Re sult * [place] AN PROCEDURE PLACEHOLDER (05/07/2025 12:54 PM CDT) [...] MD ANESTHESIA ORDERABLES Fi nal Result * [place] AN PROCEDURE PLACEHOLDER (05/07/2025 12:54 PM CDT) [...] Cavanaugh MD LAB BLOOD ORDERABLES Final Result [facility] Department [place] [address] * Differential, auto (04/22/2025 2:31 PM CDT) Neutrophil abs 2.73 1.50 - 6.50 K/cumm Imm gran abs 0.01 0.00 - 0.10 K/cumm [facility] Lymphocyte abs 0.94 0.80 - 3.30 K/cumm [facility] Monocyte abs 0.45 0.20 - 0.80 K/cumm [facility] Eosinophil abs 0.12 0.00 - 0.50 K/cumm [facility] Basophil abs 0.01 0.00 - 0.10 K/cumm [facility] Neutrophil pct 64.1 % [facility] Comment: Interpretive Data Percent cell count reference ranges are not reported, since discordance with absolute values may lead to misinterpretation of CBC data. Current Interpretive Data was last revised on 2018. Imm gran pct 0.2 % [facility] Comment: Interpretive Data Percent cell count reference ranges are not reported, since discordance with absolute values may lead to misinterpretation of CBC data. Current Interpretive Data was last revised on 2018. Lymphocyte pct 22.1 % [facility] Comment: Interpretive Data Percent cell count reference ranges are not reported, since discordance with absolute values may lead to misinterpretation of CBC data. Current Interpretive Data was last revised on 2018. Monocyte pct 10.6 % [facility] Comment: Interpretive Data Percent cell count reference ranges are not reported, since discordance with absolute values may lead to misinterpretation of CBC data. Current Interpretive Data was last revised on 2018. Eosinophil pct 2.8 % [facility] Comment: Interpretive Data Percent cell count reference ranges are not reported, since discordance with absolute values may lead to misinterpretation of CBC data. Current Interpretive Data was last revised on 2018. Basophil pct 0.2 % [facility] Comment: Interpretive Data Percent cell count reference ranges are not reported, since discordance with absolute values may lead to misinterpretation of CBC data. Current Interpretive Data was last revised on 2018. Blood 04/22/2025 2:31 PM CDT 04/22/2025 4:31 PM CDT us Conner Whitmore PRINT GRAPHIC DESIGNER LAB BLOOD ORDERABLES Fin al Result Performing Organization Address City/[facility] Co de Phone Number [facility] Department [place] [address] * (ABNORMAL) CBC with auto differential (04/22/2025 2:31 PM CDT) WBC 4.26 3.80 - 9.90 K/cumm Hgb 11.2(L) 11.9 - 15.5 g/dL [facility] Hct 34.6(L) 35.6 - 45.5 % [facility] Plt 200 150 - 400 K/cumm [facility] MPV 10.0 9.1 - 12.3 fL [facility] RBC 3.86(L) 3.90 - 5.20 M/cumm [facility] MCV 89.6 81.3 - 96.4 fL [facility] MCH 29.0 27.1 - 33.3 pg [facility] MCHC 32.4 32.3 - 35.7 g/dL [facility] RDW CV 12.2 11.1 - 14.9 % [facility] RDW SD 39.8 35.7 - 48.1 fL [facility] NRBC abs 0.00 0.00 - 0.01 K/cumm [facility] Blood 04/22/2025 2:31 PM CDT 04/22/2025 4:31 PM CDT Conner Whitmore NP LAB BLOOD ORDERABLES Fin al Result [facility] Department [place] [address] * (ABNORMAL) Comprehensive metabolic panel (04/22/2025 2:31 PM CDT) Sodium 133(L) 135 - 145 mmol/L Potassium, pl 4.1 3.3 - 4.9 mmol/L [facility] Chloride 97 97 - 110 mmol/L [facility] CO2 29 22 - 32 mmol/L [facility] Anion gap 7 2 - 15 mmol/L [facility] BUN 14 6 - 25 mg/dL [facility] Creatinine 0.61 0.60 - 1.10 mg/dL [facility] Glucose 90 70 - 199 mg/dL [facility] Comment: Interpretive Data Fasting glucose >/= 126 [...] 2022. Calcium 9.4 8.5 - 10.3 mg/dL [facility] Bilirubin, total 0.2 0.1 - 1.2 mg/dL [facility] Protein, pl 7.2 6.5 - 8.5 g/dL [facility] Albumin 4.2 3.5 - 5.0 g/dL [facility] Alk phos 93 40 - 130 Units/L [facility] ALT 10 7 - 45 Units/L [facility] AST 18 10 - 45 Units/L [facility] Blood 04/22/2025 2:31 PM CDT 04/22/2025 4:30 PM CDT Boston Cavanaugh MD LAB BLOOD ORDERABLES Final Result [facility] Department [place] [address] * CT Shoulder Left WO Contrast (04/22/2025 [...] and agrees with it. Electronically signed by: Shwa Mayfield M.D. Boston Cavanaugh MD IMG CT PROCEDURES Final Re sult from Last 3 Months Insurance [employer] MEDICARE PPO [employer] MEDICARE PPO Advance Directives For more information, please contact: [phone] * Full Code (Latest Code Status on File) Date Activated Date Inactivated Comments 05/07/2025 5:23 PM 05/08/2025 2:23 PM Care Teams German Teacher Relationship Specialty Start Date End Date Michel Ramirez MD [address] [id number] PCP - General Family Medicine 10/15/24
--- OUTSIDE RECORDS SUMMARY | 2025-06-19 07:14 | XMS_ITS | Clinical Summary ---
Author Organization [facility] Address [address] [place] [address] Care Team Providers Care Data Reduction Technician Name Role Phone Michel Ramirez MD Primary Care Provider [phone] Allergies No known active allergies Medications divalproex [...] 2 tablets by mouth nightly Active white petrolatum-can line examiner al oil (Artificial Tears, donell/min,) ointmentIndicati [...] Type Department Care Team Description 05/25/2025 Documentation [facility] Orthopaedic Surgery [address] [facility] Advanced Medicine 12th [place] [address] [place] [address] Boston Cavanaugh MD 05/20/2025 2:00 PM CDT Office Visit [facility] Orthopaedic Surgery [address] 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) 05/20/2025 1:45 PM CDT - 05/20/2025 11:59 PM CDT Hospital Encounter [facility] [address] [place] [address] Status post reverse total arthroplasty of left shoulder Discharge Disposition: Discharge to home or self care 05/07/2025 1:54 PM CDT Anesthesia Event [facility] Operating Room 1 [place] [address] Samia Hodge MD Richardson, Genea Michelle, NP 05/07/2025 1:10 PM CDT - 05/07/2025 3:40 PM CDT Surgery [facility] Operating Room 1 [place] [address] Boston Cavanaugh MD Left reverse shoulder arthroplasty 05/07/2025 10:33 AM CDT - 05/08/2025 10:17 AM CDT Hospital Encounter [address] [address] Boston Cavanaugh MD Arthritis of left shoulder (Primary Dx) Discharge Disposition: Discharge to home or self care 05/06/2025 Telephone [facility] Orthopaedic Surgery [address] [place] [address] Advanced Medicine 12th [place] [address] [place] [address] Boston Cavanaugh MD 04/22/2025 1:30 PM CDT Pre-Admission Testing [facility] Center for Preoperative Assessment and Planning [facility] ([facility]) [address] [place] [address] Preoperative testing (Primary Dx); Osteoarthritis of left glenohumeral joint 04/22/2025 10:52 AM CDT - 04/22/2025 11:59 PM CDT Hospital Encounter [facility]) [address] [place] [address] Boston Cavanaugh MD Arthritis of left shoulder Discharge Disposition: Discharge to home or self care 03/19/2025 Orders Only [facility] Orthopaedic Surgery [address] [place] [address] Advanced Medicine 12th [place] [address] [place] [address] Boston Cavanaugh MD Arthritis of left shoulder (Primary Dx) from Last 3 Months Family History Medical [...] on file Legal 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 Gender Identity Not on file Sexual Orientation [...] 05/08/2026 05/08/2025 Medical Devices Implanted Type Area Rehabilitation Physician Device Identifier Shelf Expiration Date Model / Serial / Lot [employer] Screw Glenoid Locking Reverse Aequalis Perform 5.0x22mm Titanium [id number] - [id number] Implanted:Qty: 1 on 05/07/2025 by Boston Cavanaugh MD at [facility] Screw Left: Shoulder [employer] [id number] / / [employer] Aequalis Perform Reversed 5mm 18mm Peripheral Glenoid Screw [id number] - [id number] Implanted:Qty: 1 on 05/07/2025 by Boston Cavanaugh MD at [facility] Screw Left: Shoulder [employer] [id number] / / [employer] Aequalis Perform Reversed 5mm 38mm Peripheral Glenoid Screw [id number] - [id number] Implanted:Qty: 1 on 05/07/2025 by Boston Cavanaugh MD at [facility] Screw Left: Shoulder [employer] [id number] / / [employer] Implant Screw Central Glenoid Locking Reverse Tornier Perform 6.5x25mm Titanium [id number] - [id number] Implanted:Qty: 1 on 05/07/2025 by Boston Cavanaugh MD at [facility] Screw Left: Shoulder [employer] [id number] / / Knee Replacement Bilateral: Knee [employer] Baseplate Glenoid Reverse Aequalis Perform 25mm [id number] - [id number] - [id number] Implanted:Qty: 1 on 05/07/2025 by Boston Cavanaugh MD at [facility] Left: Shoulder [employer] 02/18/2030 [id number] / [id number] / [employer] Glenosphere Reverse Shoulder Cannulated Eccentric +3mm Inferior Offset Isabela Chromium Tornier Perform 39mm [id number] - [id number] - [id number] Implanted:Qty: 1 on 05/07/2025 by Boston Cavanaugh MD at [facility] [employer] [id number] 10/19/2028 [id number] / [id number] / [employer] Kwicr Insert Perform 10 Deg Ret Ve [id number] - [id number] - [id number] Implanted:Qty: 1 on 05/07/2025 by Boston Cavanaugh MD at [facility] Left: Shoulder [employer] [id number] 11/18/2025 [id number] / [id number] / [employer] Kwicr Tray Stem Humeral Shoulder Reverse Long Tornier Perform [id number] - [id number] - [id number] Implanted:Qty: 1 on 05/07/2025 by Boston Cavanaugh MD at [facility] Left: Shoulder [employer] 02/16/2030 [id number] / [id number] / Newton Peripherals Spacer Humeral Reverse Size 3/4 +9 Perform [id number] - [id number] - [id number] Implanted:Qty: 1 on 05/07/2025 by Boston Cavanaugh MD at [facility] Left: Shoulder [employer] 09/22/2029 [id number] / [id number] / Procedures Procedure Name Priority Date/Time Associated [...] PM CDT Osteoarthritis of left glenohumeral joint HI AN PROCEDURE PLACEHOLDER Routine 05/07/2025 12:54 PM CDT HI AN PROCEDURE PLACEHOLDER Routine 05/07/2025 12:54 PM [...] CDT Impressions 05/20/2025 2:11 PM CDT Reverse bgdo-imt-rxurab left total shoulder arthroplasty in near-anatomic position. Electronically signed by: Fuentes Banks M.D. Narrative 05/20/2025 2:11 PM CDT EXAMINATION: XR SHOULDER LEFT 2 OR MORE VIEWS HISTORY: Shoulder osteoarthritis FINDINGS: 4 views of the left shoulder were performed with comparison made to 05/07/2025. There is a reverse kscp-mnj-krtagf left total shoulder arthroplasty in near-anatomic position. There is no periprosthetic lucency or fracture. Procedure Note Fuentes Banks MD PhD - 05/20/2025 EXAMINATION: XR SHOULDER LEFT 2 OR MORE VIEWS HISTORY: Shoulder osteoarthritis FINDINGS: 4 views of the left shoulder were performed with comparison made to 05/07/2025. There is a reverse ixxg-lqn-uhtjuw left total shoulder arthroplasty in near-anatomic position. There is no periprosthetic lucency or fracture. IMPRESSION: Reverse bbww-vqu-rjhgmz left total shoulder arthroplasty in near-anatomic position. Electronically signed by: Fuentes Banks M.D. us Boston Cavanaugh MD IMG XR [...] Cavanaugh MD LAB BLOOD ORDERABLES Final Result [facility] Department [place] [address] * (ABNORMAL) Hemoglobin and hematocrit (05/07/2025 11:24 PM CDT) Pathologist [facility] Hgb 10.3(L) 11.9 - 15.5 g/dL Hct 30.8(L) 35.6 - 45.5 % [facility] Blood 05/07/2025 11:2 4 PM CDT 05/07/2025 11:58 PM CDT Narrative [facility] - 05/08/2025 12:09 AM CDT change to CBC when needed Boston Cavanaugh MD LAB BLOOD ORDERABLES Final Result [facility] Department [place] [address] * (ABNORMAL) Basic metabolic panel (05/07/2025 11:24 PM CDT) [facility] Sodium 136 135 - 145 mmol/L Potassium, pl 4.5 3.3 - 4.9 mmol/L [facility] Chloride 99 97 - 110 mmol/L [facility] CO2 28 22 - 32 mmol/L [facility] Anion gap 9 2 - 15 mmol/L [facility] BUN 14 6 - 25 mg/dL [facility] Creatinine 0.59(L) 0.60 - 1.10 mg/dL [facility] Glucose 129 70 - 199 mg/dL [facility] Comment: Interpretive Data Fasting glucose >/= [...] 2022. Calcium 9.2 8.5 - 10.3 mg/dL [facility] Blood 05/07/2025 11:2 4 PM CDT 05/07/2025 11:57 PM CDT Narrative [facility] - 05/08/2025 12:29 AM CDT Daily Boston Cavanaugh MD LAB BLOOD ORDERABLES Final Result [facility] Department [place] [address] * XR Shoulder Left 2+ View (05/07/2025 [...] MD ANESTHESIA ORDERABLES Final Re sult * HI AN PROCEDURE PLACEHOLDER (05/07/2025 12:54 PM CDT) [...] MD ANESTHESIA ORDERABLES Fi nal Result * HI AN PROCEDURE PLACEHOLDER (05/07/2025 12:54 PM CDT) [...] Result * eGFR (04/22/2025 2:31 PM CDT) [facility] eGFR >90 >=60 mL/min/1. 73 m2 Comment: [...] Cavanaugh MD LAB BLOOD ORDERABLES Final Result [facility] Department [place] [address] * Differential, auto (04/22/2025 2:31 PM CDT) [facility] Neutrophil abs 2.73 1.50 - 6.50 K/cumm Imm gran abs 0.01 0.00 - 0.10 K/cumm [facility] Lymphocyte abs 0.94 0.80 - 3.30 K/cumm [facility] Monocyte abs 0.45 0.20 - 0.80 K/cumm [facility] Eosinophil abs 0.12 0.00 - 0.50 K/cumm [facility] Basophil abs 0.01 0.00 - 0.10 K/cumm [facility] Neutrophil pct 64.1 % [facility] Comment: Interpretive Data Percent cell count reference ranges are not reported, since discordance with absolute values may lead to misinterpretation of CBC data. Current Interpretive Data was last revised on 2018. Imm gran pct 0.2 % [facility] Comment: Interpretive Data Percent cell count reference ranges are not reported, since discordance with absolute values may lead to misinterpretation of CBC data. Current Interpretive Data was last revised on 2018. Lymphocyte pct 22.1 % [facility] Comment: Interpretive Data Percent cell count reference ranges are not reported, since discordance with absolute values may lead to misinterpretation of CBC data. Current Interpretive Data was last revised on 2018. Monocyte pct 10.6 % [facility] Comment: Interpretive Data Percent cell count reference ranges are not reported, since discordance with absolute values may lead to misinterpretation of CBC data. Current Interpretive Data was last revised on 2018. Eosinophil pct 2.8 % [facility] Comment: Interpretive Data Percent cell count reference ranges are not reported, since discordance with absolute values may lead to misinterpretation of CBC data. Current Interpretive Data was last revised on 2018. Basophil pct 0.2 % [facility] Comment: Interpretive Data Percent cell count reference ranges are not reported, since discordance with absolute values may lead to misinterpretation of CBC data. Current Interpretive Data was last revised on 2018. Blood 04/22/2025 2:31 PM CDT 04/22/2025 4:31 PM CDT Conner Whitmore NP LAB BLOOD ORDERABLES Fin al Result [facility] Department [place] [address] * (ABNORMAL) CBC with auto differential (04/22/2025 2:31 PM CDT) WBC 4.26 3.80 - 9.90 K/cumm Hgb 11.2(L) 11.9 - 15.5 g/dL [facility] Hct 34.6(L) 35.6 - 45.5 % [facility] Plt 200 150 - 400 K/cumm [facility] MPV 10.0 9.1 - 12.3 fL [facility] RBC 3.86(L) 3.90 - 5.20 M/cumm [facility] MCV 89.6 81.3 - 96.4 fL [facility] MCH 29.0 27.1 - 33.3 pg [facility] MCHC 32.4 32.3 - 35.7 g/dL [facility] RDW CV 12.2 11.1 - 14.9 % [facility] RDW SD 39.8 35.7 - 48.1 fL [facility] NRBC abs 0.00 0.00 - 0.01 K/cumm [facility] Blood 04/22/2025 2:31 PM CDT 04/22/2025 4:31 PM CDT us Conner Whitmore NP LAB BLOOD ORDERABLES [facility] al Result [facility] Department [place] [address] * (ABNORMAL) Comprehensive metabolic panel (04/22/2025 2:31 PM CDT) Sodium 133(L) 135 - 145 mmol/L Potassium, pl 4.1 3.3 - 4.9 mmol/L [facility] Chloride 97 97 - 110 mmol/L [facility] CO2 29 22 - 32 mmol/L [facility] Anion gap 7 2 - 15 mmol/L [facility] BUN 14 6 - 25 mg/dL [facility] Creatinine 0.61 0.60 - 1.10 mg/dL [facility] Glucose 90 70 - 199 mg/dL [facility] Comment: Interpretive Data Fasting glucose >/= [...] Calcium 9.4 8.5 - 10.3 mg/dL [facility] Bilirubin, total 0.2 0.1 - 1.2 mg/dL [facility] Protein, pl 7.2 6.5 - 8.5 g/dL [facility] Albumin 4.2 3.5 - 5.0 g/dL [facility] Alk phos 93 40 - 130 Units/L [facility] ALT 10 7 - 45 Units/L [facility] AST 18 10 - 45 Units/L [facility] Blood 04/22/2025 2:31 PM CDT 04/22/2025 4:30 PM CDT Boston Cavanaugh MD LAB BLOOD ORDERABLES Final Result [facility] Department [place] [address] * CT Shoulder Left WO Contrast (04/22/2025 [...] sult from Last [address] [place] [address] [employer] PPO [place] [id number] [employer] PPO Advance Directives For more information, please contact: [phone] * Full Code (Latest Code Status on File) Date Activated Date Inactivated Comments 05/07/2025 5:23 PM 05/08/2025 2:23 PM Care Teams Data Reduction Technician Relationship Specialty Start Date End Date Michel Ramirez MD [address] [facility] [place] [address] PCP - General Family Medicine 10/15/24
== END 2025-06-19 07:10 | disposition home or self-care (01) ==
PROVIDERS: PCP Family Medicine; Visit Provider Internal Medicine Hematology & Oncology
DX: D72.819 Decreased white blood cell count, unspecified (principal); N28.1 Cyst of kidney, acquired
CPT/HCPCS: 76700

== ENCOUNTER 2025-07-09 14:05 | Outpatient (CLI) | payer MEDICARE, SELFPAY ==
--- OUTSIDE RECORDS SUMMARY | 2025-07-09 14:18 | XMS_ITS | Clinical Summary ---
Author Organization [facility] Natanana laurakristopher Thornton Address [address] [place] [address] Care Team Providers Care Compliance And Control Analyst Name Role Phone Unavailable Primary Care Provider [...] 1,300 mg by mouth. Active vit C-vit I-wbnlzd-jamz OXIDE-lutein (PRESERVISION) 226-90-0.8-5 mg Capsule Take 1 Capsule by mouth daily. Active cyanocobalamin 1,000 mcg Tablet Take 1,000 mcg by mouth daily. Active Active Problems No known active problems Encounters Date Type Department Care Team Description 07/07/2025 External Device Data STL ABSTRACTION Provider, Abstract 07/07/2025 Telephone [facility] Oncology and Hematology - [place] [address] [place] [address] Jose Andrews MD bone marrow BX (Patient called to make sure a bone marrow bx was necessary ) 06/24/2025 4:30 PM CDT Telephone Check Up [facility] Oncology [facility] Hematology [facility] [address] [place] [address] Jose Andrews MD Leukopenia, unspecified type (Primary Dx); Chronic anemia 06/23/2025 External Device Data STL ABSTRACTION Provider, Abstract 06/23/2025 Orders Only [facility] Oncology [facility] Hematology [facility] [address] [place] [address] Jose Andrews MD 06/03/2025 External Device Data STL ABSTRACTION Provider, Abstract 06/02/2025 External Device Data STL ABSTRACTION Provider, Abstract 05/26/2025 External Device Data STL ABSTRACTION Provider, Abstract 05/26/2025 External Device Data STL ABSTRACTION Provider, Abstract 05/26/2025 External Device Data STL ABSTRACTION Provider, Abstract 05/20/2025 Orders Only [facility] Oncology [facility] Hematology [facility] [address] [place] [address] Jose Andrews MD 05/20/2025 Abstract [facility] Oncology [facility] [address] [place] [address] Jose Andrews MD 05/19/2025 3:00 PM CDT Office Visit [facility] Oncology [facility] Hematology [facility] [address] [place] [address] Jose Andrews MD Leukopenia, unspecified type (Primary [...] Care Team (Late st Contact Info) Description 07/13/2025 1:00 PM CDT Hospital Encounter [facility] Interventional Radiology [facility] [address] [place] [address] Jose Andrews MD [address] [facility] [address] [place] [address] 9, [facility], [facility] Louis Lundberg MD [address] [place] [address] 08/10/2025 11:45 AM CDT Office Visit [facility] Oncology and Hematology - [place] [address] [facility] [address] [place] [address] Jose Andrews MD [address] [facility] [address] [place] [address] Health Maintenance Due Date Last Done Comments DTAP/TDAP/TD VACCINES (1 - Tdap) 1968 COLORECTAL SCREENING 1994 Colorectal Cancer Screening 1994 FIT-DNA Q 3 years 1994 FIT/FOBT Q 1 year 1994 Flex Sig/CT Colonography Q 5 years 1994 PNEUMOCOCCAL VACCINE 50+ YEA RS (1 of 1 - PCV) 1999 ZOSTER VACCINE (1 of 2) 1999 Medicare Advantage ([place]) Prev entative Visit/Annual Wellness Visit 11/19/2024 RSV VACCINE (60+ or ) (1 - 1-dose 75+ series) 2024 INFLUENZA VACCINE (#1) 2025 OSTEOPOROSIS SCREENING 11/01/2026 11/01/2021, 2020 Procedures Procedure Name Priority Date/Time Associated Diagnosis Comments US ABDOMEN COMPLETE Routine 06/19/2025 3 :33 PM CDT COMPREHENSIVE METABOLIC PANEL Routine 05/19/2025 10:36 AM CDT DEXA SCAN Routine 11/01/2021 from Last 3 Months or Most Recently Relevant to Health Maintenance Results * US ABDOMEN COMPLETE (06/19/2025 3:33 PM CDT) Anatomical Region Laterality Modality Abdomen Ultrasound us Jose Andrews MD US ORDERABLES Final Result * COMPREHENSIVE METABOLIC PANEL (05/19/2025 10:36 AM CDT) Blood us Jose Andrews MD CHEMISTRY ORDERABLES Final Resu lt * DEXA SCAN (11/01/2021) T-SCORE FEMUR NECK [facility] [place] [address] T-SCORE FEMORAL NECK (LEFT) [facility] T-SCORE FEMORAL NECK (RIGHT) [facility] [address] T-SCORE FEMUR [facility] T-SCORE FEMUR (LEFT) [facility] [place] [address] T-SCORE FEMUR (RIGHT) [facility] [address] [facility]EL [facility] T-SCORE HEEL (LEFT) [facility] [place] [address] T-SCORE HEEL (RIGHT) [facility] [place] [address] T-SCORE HIP [facility] [place] [address] T-SCORE HIP (LEFT) [facility] [place] [address] T-SCORE HIP (RIGHT) [facility] [place] [address] T-SCORE SPINE [facility] T-SCORE WRIST [facility] [place] [address] T-SCORE WRIST (LEFT) [facility] [place] [address] T-SCORE WRIST (RIGHT) [facility] [address] us Abstract Provider HEALTH MAINTENANCE Final Resul t [facility] [address] CLNV #:[id number] [address] [place] [address], from Last 3 Months or Most Recently Relevant to Health Maintenance Insurance [facility]
--- OUTSIDE RECORDS SUMMARY | 2025-07-09 14:18 | XMS_ITS | Encounter Summary ---
Author Organization [facility] Address [address] [place] [address] Care Team Providers Care Weigh Boss Name Role Phone Unavailable Primary Care Provider Unavailabl e Encounter Details Date Type Department Care Team (Late st Contact Info) Description 07/07/2025 External Device Data STL ABSTRACTION Provider, Abstract NO ADDRESS ON FILE Social History Tobacco Use Types Packs/Day Years Used Date Smoking Tobacco: Never Smokeless Tobacco: Never Alcohol Use Standard Drinks/Week Comments Never 0 (1 standard drink = 0.6 oz pur e alcohol) Comments Unknown Sex and Gender Information Value Date Recorded Sex Assigned at Not on file Legal Sex Female 10:24 PM CDT Gender Identity Not on file Sexual Orientation Not on file documented as of this encounter Plan of Treatment Upcoming Encounters Date Type Department Care Team (Late st Contact Info) Description 07/13/2025 1:00 PM CDT Hospital Encounter [facility] Interventional Radiology [facility] [address] [place] [address] Jose Andrews MD [address] [facility] [address] [place] [address] , [facility] Louis Lundberg MD [address] [place] [address] 08/10/2025 11:45 AM CDT Office Visit [facility] Oncology and Hematology - [place] [address] [facility] [address] [place] [address] Jose Andrews MD [address] [facility] [address] [place] [address] documented as of this encounter Visit Diagnoses Not on filedocumented in this encounter
--- OUTSIDE RECORDS SUMMARY | 2025-07-09 14:18 | XMS_ITS ---
Author Organization [facility] Address [address] [place] [address] Care Team Providers Care Brass And Wind Instrument Repairer Name Role Phone Michel Ramirez MD Primary Care Provider [phone] Active Problems Problem Noted Date Diagnosed Date [...]
--- OUTSIDE RECORDS SUMMARY | 2025-07-09 14:19 | XMS_ITS | Clinical Summary ---
Author Organization [facility] Address [address] [place] [address] Care Team Providers Care Manager Solar Name Role Phone Michel Ramirez MD Primary Care Provider [phone] Allergies No known active allergies Medications divalproex [...] 2 tablets by mouth nightly Active white petrolatum-district medical examiner al oil (Artificial Tears, donell/min,) ointmentIndicati [...] Encounters Date Type Department Care Team Description 07/01/2025 10:30 AM CDT Office Visit [facility] Medicine Orthopaedic Surgery [address] [facility] Advanced Medicine 12th [place] [address] [place] [address] Boston Cavanaugh MD Status post reverse total arthroplasty of left shoulder 07/01/2025 10:07 AM CDT - 07/01/2025 11:59 PM CDT Hospital Encounter [facility] [address] [place] [address] Status post reverse total arthroplasty of left shoulder Discharge Disposition: Discharge to home or self care 05/25/2025 Documentation [facility] Medicine Orthopaedic Surgery [address] [facility] Advanced [facility] 12th [place] [address] [place] [address] Boston Cavanaugh MD 05/20/2025 2:00 PM CDT Office Visit [facility] Orthopaedic Surgery [address] [facility] 12th [place] [address] [place] [address] Boston Cavanaugh MD Status post reverse total arthroplasty of left shoulder (Primary Dx) 05/20/2025 1:45 PM CDT - 05/20/2025 11:59 PM CDT Hospital Encounter [facility] Rad[facility] ([facility]) [address] [place] [id number] Status post reverse total arthroplasty of left shoulder Discharge Disposition: Discharge to home or self care 05/07/2025 1:54 PM CDT Anesthesia Event [facility] Operating Room [address] [place] [address] Samia Hodge MD Richardson, Genea Michelle, NP 05/07/2025 1:10 PM CDT - 05/07/2025 3:40 PM CDT Surgery [facility] Operating Room [address] [place] [address] Boston Cavanaugh MD Left reverse shoulder arthroplasty 05/07/2025 10:33 AM CDT - 05/08/2025 10:17 AM CDT Hospital Encounter [address] [address] Boston Cavanaugh MD Arthritis of left shoulder (Primary Dx) Discharge Disposition: Discharge to home or self care 05/06/2025 Telephone [facility] Medicine Orthopaedic Surgery [address] [facility] Advanced [facility] 12th [place] [address] [place] [address] Boston Cavanaugh MD 04/22/2025 1:30 PM CDT Pre-Admission Testing [facility] Center for Preoperative Assessment and Planning [facility] ([facility]) [address] [place] [address] [place] [address] Preoperative testing (Primary Dx); Osteoarthritis of left glenohumeral joint 04/22/2025 10:52 AM CDT - 04/22/2025 11:59 PM CDT Hospital Encounter [facility] [address] [place] [address] Boston Cavanaugh MD Arthritis of left shoulder [...] on file Legal Sex 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 Gender Identity Not on file Sexual Orientation [...] 05/08/2026 05/08/2025 Medical Devices Implanted Type Area Director Informatics Device Identifier Shelf Expiration Date Model / Serial / Lot [employer] Screw Glenoid Locking Reverse Aequalis Perform 5.0x22mm Titanium [id number] - [id number] Implanted:Qty: 1 on 05/07/2025 by Boston Cavanaugh MD at [facility] Screw Left: Shoulder [employer] [id number] / / [employer] Aequalis Perform Reversed 5mm 18mm Peripheral Glenoid Screw [id number] - [id number] Implanted:Qty: 1 on 05/07/2025 by Boston Cavanaugh MD at [facility] Screw Left: Shoulder [employer] [id number] / / [employer] Aequalis Perform Reversed 5mm 38mm Peripheral Glenoid Screw [id number] - [id number] Implanted:Qty: 1 on 05/07/2025 by Boston Cavanaugh MD at [facility] Screw Left: Shoulder [employer] [id number] / / [employer] Implant Screw Central Glenoid Locking Reverse Tornier Perform 6.5x25mm Titanium [id number] - [id number] Implanted:Qty: 1 on 05/07/2025 by Boston Cavanaugh MD at [facility] Screw Left: Shoulder [employer] [id number] / / Knee Replacement Bilateral: Knee [employer] Baseplate Glenoid Reverse Aequalis Perform 25mm [id number] - [id number] - [id number] Implanted:Qty: 1 on 05/07/2025 by Boston Cavanaugh MD at [facility] Left: Shoulder [employer] 02/18/2030 [id number] / [id number] / SIPX Glenosphere Reverse Shoulder Cannulated Eccentric +3mm Inferior Offset Mather Chromium Tornier Perform 39mm [id number] - [id number] - [id number] Implanted:Qty: 1 on 05/07/2025 by Boston Cavanaugh MD at [facility] S[employer]X [id number] 10/19/2028 [id number] / [id number] / SIPX Insert Perform 10 Deg Ret Ve [id number] - [id number] - [id number] Implanted:Qty: 1 on 05/07/2025 by Boston Cavanaugh MD at [facility] Left: Shoulder [employer] [id number] 11/18/2025 [id number] / [id number] / SIPX Tray Stem Humeral Shoulder Reverse Long Tornier Perform [id number] - [id number] - [id number] Implanted:Qty: 1 on 05/07/2025 by Boston Cavanaugh MD at [facility] Left: Shoulder [employer] 02/16/2030 [id number] / [id number] / [employer] Spacer Humeral Reverse Size 3/4 +9 Perform [id number] - [id number] - [id number] Implanted:Qty: 1 on 05/07/2025 by Boston Cavanaugh MD at [facility] Left: Shoulder [employer] 09/22/2029 [id number] / [id number] / Procedures Procedure Name Priority Date/Time Associated Diagnosis Comments XR SHOULDER LEFT 2 OR MORE VIEWS Schedule Routine, Read Routine (OP Routine) 07/01/2025 10:15 AM CDT Status post reverse total arthroplasty of left shoulder XR SHOULDER LEFT 2 [...] PM CDT Osteoarthritis of left glenohumeral joint [facility] AN PROCEDURE PLACEHOLDER Routine 05/07/2025 12:54 PM CDT [facility] AN PROCEDURE PLACEHOLDER Routine 05/07/2025 12:54 PM [...] Results * XR Shoulder Left 2+ View (07/01/2025 10:15 AM CDT) Anatomical Region Laterality Modality Upper Extremities, Shoulder Left Comp uted Radiography 07/01/2025 10:3 7 AM CDT Impressions 07/01/2025 10:37 AM CDT 1. Lucency near the base of the coracoid process, concerning for nondisplaced periprosthetic fracture. If clinically indicated, this can be further evaluated with CT. 2. Interval increase in lucency about the superior glenoid screws, concerning for loosening. Electronically signed by: Roman Sanders MD Narrative 07/01/2025 10:37 AM CDT EXAMINATION: XR SHOULDER LEFT 2 OR MORE VIEWS HISTORY: Left glenohumeral osteoarthritis FINDINGS: Comparison dated 05/20/2025. Unchanged reverse rsee-jqe-soqilw total left shoulder arthroplasty in near anatomic position. Interval increase in lucency about the superior glenoid screws. There is a possible linear lucency near the base of the coracoid process, concerning for nondisplaced periprosthetic fracture. Mild widening of the acromioclavicular joint. Procedure Note Roman Sanders MD - 07/01/2025 EXAMINATION: XR SHOULDER LEFT 2 OR MORE VIEWS HISTORY: Left glenohumeral osteoarthritis FINDINGS: Comparison dated 05/20/2025. Unchanged reverse uyna-joi-cuvofl total left shoulder arthroplasty in near anatomic position. Interval increase in lucency about the superior glenoid screws. There is a possible linear lucency near the base of the coracoid process, concerning for nondisplaced periprosthetic fracture. Mild widening of the acromioclavicular joint. IMPRESSION: 1. Lucency near the base of the coracoid process, concerning for nondisplaced periprosthetic fracture. If clinically indicated, this can be further evaluated with CT. 2. Interval increase in lucency about the superior glenoid screws, concerning for loosening. Electronically signed by: Roman Sanders MD Boston Cavanaugh MD IMG XR PROCEDURES Final Re sult * XR Shoulder Left 2+ View (05/20/2025 1:59 PM CDT) Anatomical Region Laterality Modality Upper Extremities, Shoulder Left Comp uted Radiography 05/20/2025 2:11 PM CDT Impressions 05/20/2025 2:11 PM CDT Reverse zyea-vma-ytguxo left total shoulder arthroplasty in near-anatomic position. Electronically signed by: Fuentes Banks M.D. Narrative 05/20/2025 2:11 PM CDT EXAMINATION: XR SHOULDER LEFT 2 OR MORE VIEWS HISTORY: Shoulder osteoarthritis FINDINGS: 4 views of the left shoulder were performed with comparison made to 05/07/2025. There is a reverse igew-nff-eazsoa left total shoulder arthroplasty in near-anatomic position. There is no periprosthetic lucency or fracture. Procedure Note Fuentes Banks MD PhD - 05/20/2025 EXAMINATION: XR SHOULDER LEFT 2 OR MORE VIEWS HISTORY: Shoulder osteoarthritis FINDINGS: 4 views of the left shoulder were performed with comparison made to 05/07/2025. There is a reverse mtmt-kqp-xsdxdq left total shoulder arthroplasty in near-anatomic position. There is no periprosthetic lucency or fracture. IMPRESSION: Reverse lsdf-yiy-pckopg left total shoulder arthroplasty in near-anatomic position. [...] BLOOD ORDERABLES Final Result Performing Organization Address [facility] Co de Phone Number [facility] [place] [address] * (ABNORMAL) Hemoglobin and hematocrit (05/07/2025 11:24 PM CDT) Hgb 10.3(L) 11.9 - 15.5 g/dL Hct 30.8(L) 35.6 - 45.5 % [facility] Blood 05/07/2025 11:2 4 PM CDT 05/07/2025 11:58 PM CDT Narrative [facility] - 05/08/2025 12:09 AM CDT change to CBC when needed Boston Cavanaugh MD LAB BLOOD ORDERABLES Final Result Performing Organization Address [facility] [place] [address] * (ABNORMAL) Basic metabolic panel (05/07/2025 11:24 [...] PM CDT 05/07/2025 11:57 PM CDT [facility]ative [facility] - 05/08/2025 12:29 AM CDT Daily Boston Cavanaugh MD LAB BLOOD ORDERABLES Final Result Performing Organization Address City/State/[facility] Co de Phone Number [facility] Department [place] [address] * XR Shoulder Left 2+ View (05/07/2025 [...] sult * Airway (05/07/2025 2:18 PM CDT) Mark Beltran MD - 05/07/2025 2:18 PM CDT Mark [...] MD ANESTHESIA ORDERABLES Final Re sult * [place] AN PROCEDURE PLACEHOLDER (05/07/2025 12:54 PM CDT) [...] MD ANESTHESIA ORDERABLES Fi nal Result * [place] AN PROCEDURE PLACEHOLDER (05/07/2025 12:54 PM CDT) [...] MD LAB BLOOD ORDERABLES Final Result [facility] Department of Laboratories [place], [place] [id number] * Differential, auto (04/22/2025 2:31 PM CDT) Neutrophil abs 2.73 1.50 - 6.50 K/cumm Imm gran abs 0.01 0.00 - 0.10 K/cumm [facility] Lymphocyte abs 0.94 0.80 - 3.30 K/cumm [facility] Monocyte abs 0.45 0.20 - 0.80 K/cumm [facility] Eosinophil abs 0.12 0.00 - 0.50 K/cumm [facility] Basophil abs 0.01 0.00 - 0.10 K/cumm [facility] Neutrophil pct 64.1 % [facility] Comment: Interpretive Data Percent cell count [...] revised on 2018. Eosinophil pct 2.8 % [facility] Comment: Interpretive Data Percent cell count reference ranges are not reported, since discordance with absolute values may lead to misinterpretation of CBC data. Current Interpretive Data was last revised on 2018. Basophil pct 0.2 % [facility] Comment: Interpretive Data Percent cell count reference ranges are not reported, since discordance with absolute values may lead to misinterpretation of CBC data. Current Interpretive Data was last revised on 2018. Blood 04/22/2025 2:31 PM CDT 04/22/2025 4:31 PM CDT us Conner Whitmore NP LAB BLOOD ORDERABLES Fin al Result [facility] Department [place] [address] * (ABNORMAL) CBC with auto differential (04/22/2025 2:31 PM CDT) [facility] WBC 4.26 3.80 - 9.90 K/cumm Hgb [...] CDT Conner Whitmore NP LAB BLOOD ORDERABLES [facility] al Result [facility] Department [place] [address] * (ABNORMAL) Comprehensive metabolic panel (04/22/2025 2:31 PM CDT) [facility] Sodium 133(L) 135 - 145 mmol/L Potassium, [...] Final Result [facility] Department [place] [address] * CT Shoulder Left WO Contrast (04/22/2025 [...] sult from Last [address] [place] [id number] [facility] [place] [id number] [employer] CHOICE MEDICARE PPO Advance Directives For more information, please contact: [phone] * Full Code (Latest Code Status on File) Date Activated Date Inactivated Comments 05/07/2025 5:23 PM 05/08/2025 2:23 PM Care Teams Manager Solar Relationship Specialty Start Date End Date Michel Ramirez MD [address] [address] [place] [address] PCP - General Family Medicine 10/15/24
[2025-07-09 14:35] LABS: Hematocrit 35.0 % (37.0-47.0); Hemoglobin 11.2 g/dL (12.0-15.0); Immature Granulocyte Percent A 0.3 % (0-0.5); Lymphocytes Absolute Auto 0.90 K/mm3 (0.9-3.2); Mean Corpuscular HGB Conc 32.0 g/dl (32-36); Mean Corpuscular Hemoglobin 28.7 pg (26-34); Mean Corpuscular Volume 89.7 fl (80-100); Nucleated Red Blood Cells Absolute Auto 0.000 K/mm3 (0.0-0.012); Nucleated Red Blood Cells Perc 0.0 % (0.0-0.2); Platelet Count Result 191 k/mm3 (150-375); Red Blood Count 3.90 M/mm3 (4.2-5.4); White Blood Count 3.2 K/mm3 (4.5-10.0)
[2025-07-09 14:50] LABS: Alanine Aminotransferase 12 U/L (6-35); Albumin Level 4.1 g/dL (3.5-5.1); Alkaline Phosphatase 99 U/L (38-126); Anion Gap 6 mmol/L (4-12); Aspartate Amino Transferase 20 U/L (14-36); Bilirubin,Total 0.1 mg/dL (0.2-1.3); Blood Urea Nitrogen 12 mg/dL (7-17); Calcium 9.6 mg/dL (8.4-10.2); Carbon Dioxide 27 mmol/L (22-30); Chloride 98 mmol/L (98-107); Estimated Glomerular Filt Rate > 60; Glucose 97 mg/dL (65-110); Potassium 4.1 mmol/L (3.4-5.0); Sodium 131 mmol/L (137-145); Total Protein 7.3 g/dL (6.3-8.2)
[2025-07-09 15:56] LABS: Vitamin B12 931.0 pg/mL (239-931)
[2025-07-12 15:08] LABS: Valproic Acid (Depakote),T 19 ug/mL (50-100)
== END 2025-07-09 14:06 | disposition home or self-care (01) ==
LOC: ANHLAB 14:07
PROVIDERS: PCP Family Medicine; Visit Provider Psychiatry & Neurology Neurology
DX: D64.9 Anemia, unspecified (principal); G40.909 Epilepsy, unspecified, not intractable, without status epilepticus; D72.819 Decreased white blood cell count, unspecified
CPT/HCPCS: 36415; 80053; 80164; 80165; 80175; 82607; 82746; 83921; 85025